=== PATIENT | female | born 1945 | race Caucasian/White ===

== ENCOUNTER → 2017-04-06 | Outpatient (CLI) | payer MEDICARE ==
--- NOTE | 2017-04-07 11:45 | MM ---
Reason for exam: screening (asymptomatic). Last mammogram was performed 1 year and 5 months ago. History: Patient is postmenopausal and had first child at age 34. Took estrogen for 4 years. Physical Findings: A clinical breast exam by your physician is recommended on an annual basis and results should be correlated with mammographic findings. MG 3D Screening Mammo W/Cad Bilateral CC and MLO view(s) were taken. Prior study comparison: November 07, 2015, bilateral MG 3d screening mammo w/cad. August 15, 2014, mammogram, performed at [facility]. Finding: There is increased equal architectural distortion located 6 cm from the nipple in the inner quadrant, middle position of the right breast. New finding since November 07, 2015 and August 15, 2014. ASSESSMENT: Incomplete: need additional imaging evaluation, BI-RAD 0 RECOMMENDATION: Special view mammogram of the right breast. If lesion persists on supplemental views, image directed ultrasound is recommended. [facility] will attempt to contact patient to return for supplemental views and ultrasound if indicated.
== END | disposition home or self-care (01) ==
LOC: RADMAMWWP 09:38
PROVIDERS: ATTEND Family Medicine
DX: Z12.31 Encounter for screening mammogram for malignant neoplasm of breast (principal)
CPT/HCPCS: 77063; G0202

== ENCOUNTER → 2017-04-15 | Outpatient (CLI) | payer MEDICARE ==
--- NOTE | 2017-04-16 09:01 | MM ---
Reason for exam: additional evaluation requested from abnormal screening. Last mammogram was performed less than 1 month ago. History: Patient is postmenopausal and had first child at age 34. Family history of breast cancer in maternal aunt. Took estrogen for 4 years. Physical Findings: Nurse did not find any significant physical abnormalities on exam. MG 3D Work Up W/Cad RT Spot compression CC, spot compression MLO, and ML view(s) were taken of the right breast. Prior study comparison: April 06, 2017, bilateral MG 3d screening mammo w/cad. November 07, 2015, bilateral MG 3d screening mammo w/cad. August 15, 2014, mammogram, performed at [facility]. The breast tissue is heterogeneously dense. This may lower the sensitivity of mammography. 6mm mass lower inner quadrant in the right breast about 6 cm from nipple persists on additional views. These results were verbally communicated with the patient and result sheet given to the patient on 04/15/17. ASSESSMENT: Incomplete: need additional imaging evaluation, BI-RAD 0 RECOMMENDATION: Ultrasound of the right breast.
--- NOTE | 2017-04-16 09:02 | USB ---
Reason for exam: additional evaluation requested from abnormal screening. History: Patient is postmenopausal and had first child at age 34. Family history of breast cancer in maternal aunt. Took estrogen for 4 years. US Breast Workup Limited RT Right breast ultrasound demonstrates a 3 x 3mm oval, cystic lesion at 3 o'clock, corresponds to mammographic finding. No suspicious finding. These results were verbally communicated with the patient and result sheet given to the patient on 04/15/17. ASSESSMENT: Benign, BI-RAD 2 RECOMMENDATION: Return to routine screening mammogram schedule for both breasts.
== END | disposition home or self-care (01) ==
LOC: RADMAMWWP 08:56
PROVIDERS: ATTEND Family Medicine
DX: R92.8 Other abnormal and inconclusive findings on diagnostic imaging of breast (principal)
CPT/HCPCS: 76642; G0206; G0279

== ENCOUNTER → 2017-12-14 | Outpatient (CLI) | payer MEDICARE ==
--- NOTE | 2017-12-14 14:42 | XR ---
EXAMINATION TYPE: XR knee complete bilateral DATE OF EXAM: 12/14/2017 CLINICAL HISTORY: Progressive worsening of bilateral chronic knee pain. TECHNIQUE: Three views of the bilateral knees were obtained. COMPARISON: None. FINDINGS: There is no acute fracture/dislocation evident in either knee. Within both knees there is tricompartmental joint space narrowing and marginal osteophytes with bilateral tibial plateau scleros is. Findings are indicative of moderate arthropathy bilaterally. No suprapatellar joint effusion is s een. No suspicious osseous lesion. Osseous mineralization is within normal limits. The overlying sof t tissue appears unremarkable. IMPRESSION: 1. No acute fracture or dislocation in the either knee. 2. Moderate bilateral tricompartmental arthropathy.
== END | disposition home or self-care (01) ==
LOC: RADXRMAIN 13:17
PROVIDERS: ATTEND Family Medicine
DX: M12.862 Other specific arthropathies, not elsewhere classified, left knee (principal); M12.861 Other specific arthropathies, not elsewhere classified, right knee

== ENCOUNTER → 2019-04-25 | Outpatient (CLI) | payer MEDICARE ==
--- NOTE | 2019-04-25 10:56 | MM ---
Reason for exam: screening (asymptomatic). Last mammogram was performed 2 years ago. History: Patient is postmenopausal and had first child at age 34. Family history of breast cancer in maternal aunt at age 50. Took estrogen for 4 years. Physical Findings: A clinical breast exam by your physician is recommended on an annual basis and results should be correlated with mammographic findings. MG Screening Mammo w CAD Bilateral CC and MLO view(s) were taken. Prior study comparison: April 15, 2017, right breast MG 3d work up w/cad RT. April 06, 2017, bilateral MG 3d screening mammo w/cad. The breast tissue is heterogeneously dense. This may lower the sensitivity of mammography. There are benign appearing round calcifications bilaterally. Asymmetric breast tissue right medial aspect unchanged from 2013. There is no discrete abnormality. ASSESSMENT: Benign, BI-RAD 2 RECOMMENDATION: Routine screening mammogram of both breasts in 1 year.
== END | disposition home or self-care (01) ==
LOC: RADMAMWWP 09:38
PROVIDERS: ATTEND Family Medicine
DX: Z12.31 Encounter for screening mammogram for malignant neoplasm of breast (principal)
CPT/HCPCS: 77067

== ENCOUNTER → 2019-07-19 | Outpatient (CLI) | payer MEDICARE ==
[2019-07-19 19:30] LABS: African American GFR (CKD) 65.2 (60.0-200.0); Albumin 4.2 g/dL (3.80-4.90); Albumin/Globulin Ratio 1.83 (1.60-3.17); Anion Gap 5.4 mmol/L (4.00-12.00); Calcium 9.5 mg/dL (8.7-10.3); Carbon Dioxide 30.6 mmol/L (21.6-31.8); Chol/HDL Ratio 3.76; Globulin 2.3 g/dL (1.6-3.3); LDL Cholesterol,Calculated 99.4 mg/dL (0.0-131.0); Non-African American GFR(CKD) 56.2 (60.0-200.0); Potassium 4.6 mmol/L (3.5-5.5); Total Bilirubin 0.4 mg/dL (0.3-1.2); Total Protein 6.5 g/dL (6.2-8.2); VLDL Calculation 38.6 mg/dL (5.00-40.00)
[2019-07-19 19:58] LABS: T4, Free (Free Thyroxine) 0.8 ng/dL (0.80-1.80)
== END ==
LOC: LABWHC1 09:47
PROVIDERS: ATTEND Family Medicine
DX: Z00.00 Encounter for general adult medical examination without abnormal findings (principal); I10 Essential (primary) hypertension
CPT/HCPCS: 36415; 80053; 80061; 82306; 84439; 84443

== ENCOUNTER → 2020-09-19 | Outpatient (CLI) | payer MEDICARE ==
[2020-09-19 15:08] LABS: Basophils # (A) 0.03 X 10*3/uL (0.00-0.10); Basophils % (A) 0.5 %; Eosinophils # (A) 0.23 X 10*3/uL (0.04-0.35); Eosinophils % (A) 3.9 %; HCT 38.9 % (37.2-46.3); HGB 12.4 g/dL (12.0-15.0); Lymphocytes # (A) 2.24 X 10*3/uL (0.90-5.00); Lymphocytes % (A) 38.2 %; MCHC 31.9 g/dL (32.0-37.0); MCV 94.2 fL (80.0-97.0); Mean Platelet Volume 9.9 fL (9.5-12.2); Monocytes # (A) 0.83 X 10*3/uL (0.20-1.00); Monocytes % (A) 14.1 %; Neutrophils # (A) 2.52 X 10*3/uL (1.80-7.70); Platelet Count 285 X 10*3/uL (140-440); RBC 4.13 X 10*6/uL (4.10-5.20); RDW 11.9 % (11.5-14.5); WBC 5.87 X 10*3/uL (4.50-10.00)
[2020-09-20 01:44] LABS: African American GFR (CKD) 57.7 (60.0-200.0); Albumin 4.2 g/dL (3.80-4.90); Albumin/Globulin Ratio 1.83 (1.60-3.17); Anion Gap 6.1 mmol/L (4.00-12.00); BUN/Creat Ratio 15.45 Ratio (12.00-20.00); Calcium 9.2 mg/dL (8.7-10.3); Carbon Dioxide 29.9 mmol/L (21.6-31.8); Chol/HDL Ratio 3.52; Globulin 2.3 g/dL (1.6-3.3); LDL Cholesterol,Calculated 93.2 mg/dL (0.0-131.0); Non-African American GFR(CKD) 49.8 (60.0-200.0); Potassium 4.5 mmol/L (3.5-5.5); Total Bilirubin 0.3 mg/dL (0.2-1.2); Total Protein 6.5 g/dL (6.2-8.2); VLDL Calculation 32.8 mg/dL (5.00-40.00)
== END | disposition home or self-care (01) ==
LOC: LABWHC1 10:23
PROVIDERS: ATTEND Family Medicine
DX: Z00.00 Encounter for general adult medical examination without abnormal findings (principal); E55.9 Vitamin D deficiency, unspecified; I12.9 Hypertensive chronic kidney disease with stage 1 through stage 4 chronic kidney disease, or unspecified chronic kidney disease; N18.30 Chronic kidney disease, stage 3 unspecified
CPT/HCPCS: 36415; 80053; 80061; 82306; 84443; 85025

== ENCOUNTER → 2021-03-13 | Outpatient (CLI) | payer MEDICARE ==
--- NOTE | 2021-03-15 08:57 | MM ---
Reason for exam: screening (asymptomatic). Last mammogram was performed 1 year and 11 months ago. History: Patient is postmenopausal and had first child at age 34. Family history of breast cancer in maternal aunt at age 50. Took estrogen for 4 years. Physical Findings: A clinical breast exam by your physician is recommended on an annual basis and results should be correlated with mammographic findings. MG 3D Screening Mammo W/Cad Bilateral CC and MLO view(s) were taken. Prior study comparison: April 25, 2019, bilateral MG screening mammo w CAD. April 15, 2017, right breast MG 3d work up w/cad RT. November 07, 2015, bilateral MG 3d screening mammo w/cad. There are scattered fibroglandular densities. Small benign oil cyst calcifications. No significant changes when compared with prior studies. ASSESSMENT: Benign, BI-RAD 2 RECOMMENDATION: Routine screening mammogram of both breasts in 1 year.
== END | disposition home or self-care (01) ==
LOC: RADMAMWWP 13:59
PROVIDERS: ATTEND Family Medicine
DX: Z12.31 Encounter for screening mammogram for malignant neoplasm of breast (principal); Z78.0 Asymptomatic menopausal state; Z80.3 Family history of malignant neoplasm of breast; Z79.818 Long term (current) use of other agents affecting estrogen receptors and estrogen levels
CPT/HCPCS: 77063; 77067

== ENCOUNTER 2021-07-07 12:26 | Emergency (ER) | payer MEDICARE ==
[2021-07-07 12:46] VITALS: RESP 18
[2021-07-07] MEDS ORDERED: BAMLANIVIMAB (EUA) 700 MG, ETESEVIMAB (EUA) 1,400 MG in SODIUM CHLORIDE 0.9% 50 ML IVPB ONE (16:30)
[2021-07-07] MEDS ORDERED: SODIUM CHLORIDE 0.9% 50 ML IVPB ONE (17:00)
--- NOTE | 2021-07-07 17:18 | ED ---
General Adult HPI - General Chief complaint: Upper Respiratory Infection Stated complaint: Covid+/Wants antibodies Time Seen by Provider: 07/07/21 14:56 Source: patient, RN notes reviewed, old records reviewed Mode of arrival: ambulatory Limitations: no limitations - History of Present Illness Initial comments: I evaluated the patient when she was placed in a room. She is a 75-year-old female with past medical history remarkable for hypertension presents to the emergency department seeking Bam therapy for her COVID-19 infection. Patient tested positive within the last few days. She's been having symptoms for approximate 7 days. She was vaccinated for COVID-19 both doses. She endorses mild rhinorrhea with a mild nonproductive cough but denies any shortness of breath, chest pain, abdominal pain, nausea, vomiting. She has no other acute complaints at this time. She is requesting Bam therapy. - Related Data Home Medications Medication Instructions Recorded Confirmed Metoprolol Succinate [Toprol XL] 100 mg PO DAILY 07/07/21 07/07/21 PARoxetine HCL [Paxil] 10 mg PO DAILY PRN 07/07/21 07/07/21 Allergies Allergy/AdvReac Type Severity Reaction Status Date / Time amoxicillin Allergy Unknown Verified 07/07/21 15:25 Review of Systems ROS Statement: Those systems with pertinent positive or pertinent negative responses have been documented in the HPI. Review of Systems: CONST: Denies fever EYES: Denies blurry vision ENT: Endorses nasal congestion C/V: Denies Chest pain RESP: Denies shortness of breath GI: Denies abdominal pain : Denies dysuria SKIN: Denies rash. MSK: Denies joint pain. NEURO: Denies headache ROS Other: All systems not noted in ROS Statement are negative. Past Medical History Past Medical History: Hypertension History of Any Multi-Drug Resistant Organisms: None Reported Past Surgical History: Joint Replacement Additional Past Surgical History / Comment(s): cataracts Past Psychological History: Depression Smoking Status: Never smoker Past Alcohol Use History: None Reported Past Drug Use History: None Reported General Exam - General Exam Comments Initial Comments: General: Appears in no acute distress. HEAD: Normal with no signs of head trauma. EYES: PERRLA, EOMI, conjunctiva normal, no discharge. ENT: Hearing grossly intact, normal oropharynx. Mild rhinorrhea. RESPIRATORY: Clear breath sounds bilaterally. No wheezes, rales, or rhonchi. Not hypoxic. No increased work of breathing. C/V: Regular rate and rhythm. S1 and S2 auscultated, no edema, peripheral pulses 2+ and intact throughout ABD: Abd is soft, nontender, nondistended EXT: Normal range of motion, no obvious deformity SKIN: No rashes or lesions observed on exposed skin. NEURO: Alert and oriented 4. Limitations: no limitations Course Vital Signs 07/07/21 07/07/21 07/07/21 12:43 14:46 17:30 Temperature 98.1 F Pulse Rate 75 78 Respiratory 18 18 18 Rate Blood Pressure 177/84 141/78 O2 Sat by Pulse 96 97 Oximetry Medical Decision Making - Medical Decision Making Based on the patient's presentation and physical exam, she is covid positive patient with mild symptoms. She is not hypoxic. I did not believe that she requires laboratory studies or imaging at this time. She is requesting monoclonal antibody therapy which she will be given. She did consent to the therapy. She'll be observed following therapy for any ALLERGIC reactions. She was in agreement this plan. Following a period Of observation after therapy, she had no ALLERGIC reactions. She'll be discharged home in good condition. I instructed the patient to follow up with their PCP in the next 3 days. I explained that the patient should return to the emergency department if they experience any worsening symptoms. Strict return precautions were discussed with the patient. The patient expressed understanding of these instructions. I answered all questions that the patient had. The patient was discharged home in good condition with their prescriptions and follow up information. Disposition Clinical Impression: COVID-19 Disposition: HOME SELF-CARE Condition: Good Instructions (If sedation given, give patient instructions): Coronavirus Disease 2019 (COVID-19) Is patient prescribed a controlled substance at d/c from ED?: No Referrals: Lety Kwan MD [Primary Care Provider] - 1-2 days
[2021-07-07 18:13] VITALS: BP 141/78; PULSE 78; TEMP 98.1
== END 2021-07-07 17:30 | disposition home or self-care (01) ==
LOC: EC 12:26
DX: U07.1 COVID-19 (principal); I10 Essential (primary) hypertension; F32.A Depression, unspecified; Z88.0 Allergy status to penicillin
CPT/HCPCS: 99283; 96365; J3490

== ENCOUNTER → 2021-09-11 | Outpatient (CLI) | payer MEDICARE ==
[2021-09-11 14:35] LABS: Basophils # (A) 0.03 X 10*3/uL (0.00-0.10); Basophils % (A) 0.5 %; Eosinophils # (A) 0.27 X 10*3/uL (0.04-0.35); Eosinophils % (A) 4.8 %; HCT 37.4 % (37.2-46.3); Lymphocytes # (A) 1.83 X 10*3/uL (0.90-5.00); Lymphocytes % (A) 32.6 %; MCH 30.5 pg (27.0-32.0); MCHC 32.1 g/dL (32.0-37.0); MCV 94.9 fL (80.0-97.0); Mean Platelet Volume 9.4 fL (9.5-12.2); Monocytes # (A) 0.79 X 10*3/uL (0.20-1.00); Monocytes % (A) 14.1 %; Neutrophils # (A) 2.68 X 10*3/uL (1.80-7.70); Neutrophils % (A) 47.8 %; Platelet Count 303 X 10*3/uL (140-440); RBC 3.94 X 10*6/uL (4.10-5.20); RDW 12.7 % (11.5-14.5); WBC 5.61 X 10*3/uL (4.50-10.00)
[2021-09-11 14:59] LABS: ALT 17 U/L (8-44); AST 23 U/L (13-35); African American GFR (CKD) 67.7 (60.0-200.0); Albumin 4.1 g/dL (3.8-4.9); Albumin/Globulin Ratio 1.29 (1.60-3.17); Alkaline Phosphatase 85 U/L (41-126); BUN/Creat Ratio 16.28 Ratio (12.00-20.00); Blood Urea Nitrogen 15.6 mg/dL (9.0-27.0); Calcium 9.6 mg/dL (8.7-10.3); Chloride 104 mmol/L (96-109); Chol/HDL Ratio 3.83 Ratio; Globulin 3.2 g/dL (1.6-3.3); Glucose 102 mg/dL (70-110); LDL Cholesterol,Calculated 100.7 mg/dL (0.0-131.0); Non-African American GFR(CKD) 58.4 (60.0-200.0); Potassium 4.8 mmol/L (3.5-5.5); Sodium 142 mmol/L (135-145); Total Protein 7.2 g/dL (6.2-8.2)
== END | disposition home or self-care (01) ==
LOC: LABWHC1 09:59
PROVIDERS: ATTEND Family Medicine
DX: Z00.00 Encounter for general adult medical examination without abnormal findings (principal); E55.9 Vitamin D deficiency, unspecified
CPT/HCPCS: 36415; 80053; 80061; 82306; 84443; 85025

== ENCOUNTER → 2022-03-18 | Outpatient (CLI) | payer MEDICARE ==
--- NOTE | 2022-03-19 19:51 | MM ---
Reason for Exam: Screening (asymptomatic). Last mammogram was performed 1 year(s) and 1 month(s) ago. Patient History: Menarche at age 14. First Full-Term at age 34. Late child-bearing (after 30). Postmenopausal. Patient has history of breast feeding. Patient used Estrogen for 4 years. Maternal aunt had breast cancer, age 50. Risk Values: Shelly 5 year model risk: 2.4%. NCI Lifetime model risk: 5.3%. Prior Study Comparison: 04/06/2017 Bilateral Screening Mammogram, [facility]. 04/15/2017 Right Diagnostic Mammogram, [facility]. 04/25/2019 Bilateral Screening Mammogram, [facility]. 03/13/2021 Bilateral Screening Mammogram, [facility]. Tissue Density: The breast tissue is heterogeneously dense. This may lower the sensitivity of mammography. Findings: Analyzed By CAD. Dense tissues are present anteriorly on a background of scattered densities. Benign bilateral calcifications. Chronic underlying nodularity on the right as well as areas of asymmetric density. These asymmetric densities when compared to various multiple priors appear to be unchanged. No significant change from prior exams. Overall Assessment: Benign, BI-RAD 2 Management: Screening Mammogram of both breasts in 1 year. 1. Patient should continue monthly self breast exams. 2. A clinical breast exam by your physician is recommended on an annual basis. 3. This exam should not preclude additional follow-up of suspicious palpable abnormalities. Electronically signed and approved by: Vidya Matamoros M.D. Radiologist
== END | disposition home or self-care (01) ==
LOC: RADMAMWWP 09:51
PROVIDERS: ATTEND Family Medicine
DX: Z12.31 Encounter for screening mammogram for malignant neoplasm of breast (principal); Z78.0 Asymptomatic menopausal state; Z80.3 Family history of malignant neoplasm of breast
CPT/HCPCS: 77063; 77067

== ENCOUNTER 2022-04-30 09:28 | Day surgery (SDC) | payer MEDICARE ==
[2022-04-29 09:47] VITALS: BMI 44.6
[~2022-04-30 09:28] MED LIST: LACTATED RINGERS 1,000 ML IV SCH; LIDOCAINE 1% (10MG/ML) FOR IV START INTRADERMA PRN
[2022-04-30 10:05] VITALS: TEMP 97.3
[2022-04-30] MEDS ORDERED: PROPOFOL 10 MG/ML 20 ML VIAL IV ONE (10:38)
--- NOTE | 2022-04-30 10:54 | P.PCN ---
Date of Procedure: 04/30/22 Procedure(s) Performed: BRIEF HISTORY: Patient is a 76-year-old pleasant female scheduled for an elective colonoscopy as a part of screening for colorectal neoplasia. PROCEDURE PERFORMED: Colonoscopy with biopsy. PREOPERATIVE DIAGNOSIS: Screening for colon cancer. IV sedation per Anesthesia. PROCEDURE: After informed consent was obtained, the patient, was brought into the endoscopy unit. IV sedation was administered by Anesthesia under continuous monitoring. Digital rectal examination was normal. Initially the Olympus CF-160 flexible video colonoscope was then inserted in the rectum, gradually advanced into the cecum without any difficulty. Careful examination was performed as the scope was gradually being withdrawn. Ileocecal valve and the appendiceal orifice were visualized and appeared normal. Prep was excellent. Mucosa of the cecum, had 3 mm sessile polyp that was removed by cold biopsy. Rest of the ascending colon, transverse colon, descending colon, sigmoid colon, and rectum appeared normal. Scattered sigmoid diverticulosis. Retroflexion was performed in the rectum and no lesions were seen. The patient tolerated the procedure well. IMPRESSION: Millimeters sessile cecal polyp status post cold biopsy Scattered sigmoid diverticulosis RECOMMENDATIONS: Findings of this examination were discussed with the patient and family.. He was advised to follow with the biopsy results. If the biopsy result adenoma she can have a repeat colonoscopy in 5 years.
[2022-04-30 11:21] VITALS: BP 140/60; PULSE 64; RESP 15
== END 2022-04-30 11:40 | disposition home or self-care (01) ==
LOC: ORWHC2ENDO 09:28
PROVIDERS: ATTEND Internal Medicine Gastroenterology
DX: Z12.11 Encounter for screening for malignant neoplasm of colon (principal); K63.5 Polyp of colon; K57.30 Diverticulosis of large intestine without perforation or abscess without bleeding; I10 Essential (primary) hypertension; Z79.82 Long term (current) use of aspirin; Z79.899 Other long term (current) drug therapy; Z88.0 Allergy status to penicillin
CPT/HCPCS: 88305; 45380; J2704

== ENCOUNTER → 2022-12-17 | Outpatient (CLI) | payer MEDICARE ==
[2022-12-17 15:39] LABS: ALT 16 U/L (8-44); AST 21 U/L (13-35); Albumin 4.1 g/dL (3.8-4.9); Albumin/Globulin Ratio 1.41 (1.60-3.17); Alkaline Phosphatase 83 U/L (41-126); BUN/Creat Ratio 16.22 Ratio (12.00-20.00); Blood Urea Nitrogen 14.6 mg/dL (9.0-27.0); Calcium 9.8 mg/dL (8.7-10.3); Carbon Dioxide 28.8 mmol/L (20.0-27.5); Chloride 104 mmol/L (96-109); Globulin 2.9 g/dL (1.6-3.3); Glucose 94 mg/dL (70-110); Non-African American GFR(CKD) 62.1 (60.0-200.0); Sodium 142 mmol/L (135-145)
[2022-12-17 15:58] LABS: Basophils # (A) 0.03 X 10*3/uL (0.00-0.10); Basophils % (A) 0.6 %; Eosinophils # (A) 0.19 X 10*3/uL (0.04-0.35); Eosinophils % (A) 3.5 %; HCT 39.4 % (37.2-46.3); HGB 12.9 g/dL (12.0-15.0); Immature Grans, Automated 0.4 %; Lymphocytes # (A) 1.81 X 10*3/uL (0.90-5.00); Lymphocytes % (A) 33.5 %; MCH 30.4 pg (27.0-32.0); MCHC 32.7 g/dL (32.0-37.0); MCV 92.9 fL (80.0-97.0); Mean Platelet Volume 9.7 fL (9.5-12.2); Monocytes # (A) 0.65 X 10*3/uL (0.20-1.00); NRBC Per 100 WBC 0 /100 WBCS (0.0-0.0); Neutrophils # (A) 2.71 X 10*3/uL (1.80-7.70); Platelet Count 276 X 10*3/uL (140-440); RBC 4.24 X 10*6/uL (4.10-5.20); RDW 12.2 % (11.5-14.5); WBC 5.41 X 10*3/uL (4.50-10.00)
== END | disposition home or self-care (01) ==
LOC: LABWHC1 10:27
PROVIDERS: ATTEND Family Medicine
DX: Z00.00 Encounter for general adult medical examination without abnormal findings (principal)
CPT/HCPCS: 36415; 80053; 80061; 83036; 84443; 85025

== ENCOUNTER → 2023-04-13 | Outpatient (CLI) | payer MEDICARE ==
--- NOTE | 2023-04-14 10:45 | MM ---
Reason for Exam: Screening (asymptomatic). Last screening mammogram was performed 12 month(s) ago. Patient History: Menarche at age 14. First Full-Term at age 34. Late child-bearing (after 30). Postmenopausal. Patient has history of breast feeding. Patient used Estrogen for 4 years. Maternal aunt had breast cancer, age 50. Risk Values: Shelly 5 year model risk: 2.4%. NCI Lifetime model risk: 4.9%. Prior Study Comparison: 04/25/2019 Bilateral Screening Mammogram, [facility]. 03/13/2021 Bilateral Screening Mammogram, [facility]. 03/18/2022 Bilateral MG 3D screening mammo w/cad, [facility]. Tissue Density: The breast tissue is heterogeneously dense. This may lower the sensitivity of mammography. Findings: Analyzed By CAD. Left breast increasing asymmetry in the upper aspect on MLO view 10 mm in size measuring 5-6 cm from the nipple. Right breast Benign-appearing calcifications bilaterally. Overall Assessment: Incomplete: need additional imaging evaluation, BI-RAD 0 Management: Diagnostic Mammogram of the left breast. [facility] will attempt to contact patient to return for supplemental views and ultrasound if indicated. Patient should continue monthly self-breast exams. A clinical breast exam by your physician is recommended on an annual basis. This exam should not preclude additional follow-up of suspicious palpable abnormalities. Note on Shelly scores and lifetime risk: 1. A Shelly score greater than 3% is considered moderate risk. If this is the case, consider specialist referral to assess eligibility for a risk reducing agent. 2. If overall lifetime risk for the development of breast cancer is 20% or higher, the patient may qualify for future screening with alternating mammogram and breast MRI. Electronically signed and approved by: Leonid Gresham DO
== END | disposition home or self-care (01) ==
LOC: RADMAMWWP 10:07
PROVIDERS: ATTEND Family Medicine
DX: Z12.31 Encounter for screening mammogram for malignant neoplasm of breast (principal); Z78.0 Asymptomatic menopausal state; Z80.3 Family history of malignant neoplasm of breast
CPT/HCPCS: 77063; 77067

== ENCOUNTER → 2023-04-22 | Outpatient (CLI) | payer MEDICARE ==
--- NOTE | 2023-04-22 11:18 | MM ---
Reason for Exam: Additional evaluation requested from abnormal screening. Last screening mammogram was performed less than 1 month ago. Patient History: Menarche at age 14. First Full-Term at age 34. Late child-bearing (after 30). Postmenopausal. Patient has history of breast feeding. Patient used Estrogen for 4 years. Maternal aunt had breast cancer, age 50. Risk Values: Shelly 5 year model risk: 2.4%. NCI Lifetime model risk: 4.9%. Prior Study Comparison: 03/13/2021 Bilateral Screening Mammogram, [facility]. 03/18/2022 Bilateral MG 3D screening mammo w/cad, [facility]. 04/13/2023 Bilateral MG 3D screening mammo w/cad, [facility]. Tissue Density: Left: The breast tissue is heterogeneously dense. This may lower the sensitivity of mammography. Findings: Analyzed By CAD. Pattern appears stable. No persistent suspicious density on compression. There is persistence of the asymmetric density and ultrasound be utilized for further evaluation. There are multiple cysts benign spherical calcifications within the left breast. Overall Assessment: Incomplete: need additional imaging evaluation, BI-RAD 0 Management: Diagnostic Breast Ultrasound of the left breast. A negative mammogram report should not preclude additional follow up of suspicious palpable abnormalities. Patient should continue monthly self breast exam. A clinical breast exam by your physician is recommended on an annual basis and results should be correlated with mammographic findings. Electronically signed and approved by: Alejandro Krishnan D.O. Radiologis
--- NOTE | 2023-04-22 11:35 | USB ---
Reason for Exam: Additional evaluation requested from abnormal screening. Patient History: Menarche at age 14. First Full-Term at age 34. Late child-bearing (after 30). Postmenopausal. Patient has history of breast feeding. Patient used Estrogen for 4 years. Maternal aunt had breast cancer, age 50. Risk Values: Shelly 5 year model risk: 2.4%. NCI Lifetime model risk: 4.9%. Technique: Method: Targeted. Prior Study Comparison: 03/13/2021 Bilateral Screening Mammogram, [facility]. 03/18/2022 Bilateral MG 3D screening mammo w/cad, [facility]. 04/13/2023 Bilateral MG 3D screening mammo w/cad, [facility]. Findings: The upper outer quadrant of the left breast, the axilla of the left breast and the retroareolar of the left breast were scanned. No solid or cystic masses are identified. No ultrasound abnormality to correspond to the asymmetric density on mammogram.. Overall Assessment: Benign, BI-RAD 2 Management: Diagnostic Mammogram of the left breast in 6 months. A clinical breast exam by your physician is recommended on an annual basis and results should be correlated with mammographic findings. This exam should not preclude additional follow-up of suspicious palpable abnormalities. Results were given to the patient verbally at the time of exam. Electronically signed and approved by: Alejandro Krishnan D.O. Radiologis
== END | disposition home or self-care (01) ==
LOC: RADMAMWWP 10:19
PROVIDERS: ATTEND Family Medicine
DX: R92.8 Other abnormal and inconclusive findings on diagnostic imaging of breast (principal); Z78.0 Asymptomatic menopausal state; Z80.3 Family history of malignant neoplasm of breast
CPT/HCPCS: 77065; 76642; G0279; 77061

== ENCOUNTER → 2024-02-03 | Outpatient (CLI) | payer MEDICARE ==
[2024-02-03 15:21] LABS: Basophils # (A) 0.02 X 10*3/uL (0.00-0.10); Basophils % (A) 0.3 %; Eosinophils # (A) 0.23 X 10*3/uL (0.04-0.35); HCT 38.5 % (37.2-46.3); HGB 12.3 g/dL (12.0-15.0); Lymphocytes # (A) 1.88 X 10*3/uL (0.90-5.00); Lymphocytes % (A) 32.6 %; MCH 30.1 pg (27.0-32.0); MCHC 31.9 g/dL (32.0-37.0); MCV 94.1 FL (80.0-97.0); Mean Platelet Volume 9.6 FL (9.5-12.2); Monocytes # (A) 0.77 X 10*3/uL (0.20-1.00); Monocytes % (A) 13.3 %; NRBC Per 100 WBC 0 X 10*3/uL (0.00-0.01); Neutrophils # (A) 2.86 X 10*3/uL (1.80-7.70); Neutrophils % (A) 49.6 %; Platelet Count 293 X 10*3/uL (140-440); RBC 4.09 X 10*6/uL (4.10-5.20); RDW 11.9 % (11.5-14.5); WBC 5.77 X 10*3/uL (4.50-10.00)
[2024-02-03 15:44] LABS: ALT 18 U/L (8-44); AST 28 U/L (13-35); Albumin 4.2 g/dL (3.8-4.9); Alkaline Phosphatase 90 U/L (41-126); Calcium 9.7 mg/dL (8.7-10.3); Chloride 103 mmol/L (96-109); Chol/HDL Ratio 3.65 Ratio; Glucose 107 mg/dL (70-110); LDL Cholesterol,Calculated 87.1 mg/dL (0.0-131.0); Potassium 4.3 mmol/L (3.5-5.5); Sodium 142 mmol/L (135-145); Total Bilirubin 0.3 mg/dL (0.3-1.2); Total Protein 7.2 g/dL (6.2-8.2)
== END | disposition home or self-care (01) ==
LOC: LABWHC1 09:57
PROVIDERS: ATTEND Family Medicine
DX: Z00.00 Encounter for general adult medical examination without abnormal findings (principal)
CPT/HCPCS: 36415; 80053; 80061; 83036; 84443; 85025

== ENCOUNTER → 2024-02-16 | Outpatient (CLI) | payer MEDICARE | END | disposition home or self-care (01) | LOC: RADMAMWWP 13:06 | PROVIDERS: ATTEND Family Medicine | DX: Z53.9 Procedure and treatment not carried out, unspecified reason (principal) ==

== ENCOUNTER → 2024-04-22 | Outpatient (CLI) | payer MEDICARE ==
--- NOTE | 2024-04-24 11:14 | MM ---
Reason for Exam: Screening (asymptomatic). Last mammogram was performed 1 year(s) and 1 month(s) ago. Patient History: Menarche at age 14. First Full-Term at age 34. Late child-bearing (after 30). Postmenopausal. Patient has history of breast feeding. Patient used Estrogen for 4 years. Maternal aunt (gr) had breast cancer, age 50. Risk Values: Shelly 5 year model risk: 2.4%. NCI Lifetime model risk: 4.6%. Prior Study Comparison: 04/06/2017 Bilateral Screening Mammogram, [facility]. 04/15/2017 Right Diagnostic Mammogram, [facility]. 04/25/2019 Bilateral Screening Mammogram, [facility]. 03/13/2021 Bilateral Screening Mammogram, [facility]. 03/18/2022 Bilateral MG 3D screening mammo w/cad, [facility]. 04/13/2023 Bilateral MG 3D screening mammo w/cad, [facility]. 04/22/2023 Left MG 3D work up w/cad , [facility]. Tissue Density: There are scattered areas of fibroglandular density. Findings: Analyzed By CAD. Right breast: There is no suspicious group of microcalcifications or new suspicious mass. Left breast: There is no suspicious group of microcalcifications or new suspicious mass. Overall Assessment: Negative, BI-RAD 1 Management: Screening Mammogram of both breasts in [address] [facility] will attempt to contact patient to return for supplemental views and ultrasound if indicated. Patient should continue monthly self-breast exams. A clinical breast exam by your physician is recommended on an annual basis. This exam should not preclude additional follow-up of suspicious palpable abnormalities. Note on Shelly scores and lifetime risk: 1. A Shelly score greater than 3% is considered moderate risk. If this is the case, consider specialist referral to assess eligibility for a risk reducing agent. 2. If overall lifetime risk for the development of breast cancer is 20% or higher, the patient may qualify for future screening with alternating mammogram and breast MRI. Electronically signed and approved by: Leonid Gresham DO
== END | disposition home or self-care (01) ==
LOC: RADMAMWWP 13:10
PROVIDERS: ATTEND Family Medicine
DX: Z12.31 Encounter for screening mammogram for malignant neoplasm of breast
CPT/HCPCS: 77063; 77067

== ENCOUNTER 2024-07-23 13:32 | Inpatient (IN) | payer MEDICARE ==
[2024-07-23 14:06] LABS: Basophils % (A) 1 %; Eosinophils # (A) 0.3 k/uL (0-0.7); Eosinophils % (A) 5 %; HCT 37.5 % (34.0-46.0); HGB 12.9 gm/dL (11.4-16.0); Lymphocytes % (A) 31 %; MCH 31.4 pg (25.0-35.0); MCHC 34.3 g/dL (31.0-37.0); MCV 91.3 fL (80.0-100.0); Mean Platelet Volume 6.4; Monocytes # (A) 0.7 k/uL (0-1.0); Monocytes % (A) 10 %; Neutrophils # (A) 3.3 k/uL (1.3-7.7); Neutrophils % (A) 50 %; Platelet Count 263 k/uL (150-450); RBC 4.11 m/uL (3.80-5.40); RDW 12.3 % (11.5-15.5); WBC 6.5 k/uL (3.8-10.6)
--- NOTE | 2024-07-23 14:08 | ED ---
Recheck HPI <Leonid Alfaro - Last Filed: 07/23/24 15:47> - General Source: patient, family, RN notes reviewed, old records reviewed Mode of arrival: ambulatory Limitations: no limitations <Elinor Escobar - Last Filed: 07/23/24 16:11> - General Chief Complaint: Recheck/Abnormal Lab/Rx Stated Complaint: Abd labs Time Seen by Provider: 07/23/24 14:08 - History of Present Illness Initial Comments: 78-year-old female presenting to the ER for evaluation of bradycardia. Patient was seen by PCP on 07-05-2024. Family, at bedside, state patient was found to have a low heart rate and was referred to cardiology. Patient followed up with Dr. Dietz in office yesterday and underwent EKG and echocardiogram. Holter monitor was also placed at that time. Patient states that she received a phone call from Dr. Martin this morning instructing her to go to the ER for further evaluation. Patient reports for the past couple of weeks she has been experiencing an increase in shortness of breath especially with exertion. Patient states she will be able to "wash dishes" for approximately 20 minutes until she has to sit down due to feeling short of breath. Family, at bedside, state after going grocery shopping or having a day outpatient will need 1 day to "recuperate". Patient denies any chest pain or palpitations. She does report a "foggy" sensation recently but this is not currently occurring. She denies any dizziness, lightheadedness, nausea, vomiting, abdominal pain, urinary complaints or peripheral edema. Patient denies orthopnea or home O2 use. No fever, cough, congestion. History of hypertension for which she takes metoprolol 50 mg and losartan 50mg daily. (Elinor Escobar) - Related Data Home Medications Medication Instructions Recorded Confirmed Metoprolol Succinate [Toprol XL] 100 mg PO DAILY 07/07/21 04/30/22 Ascorbic Acid [Vitamin C] 1,000 mg PO DAILY 07/23/24 07/23/24 Cholecalciferol (Vitamin D3) 50 mcg PO DAILY 07/23/24 07/23/24 [Vitamin D3 (50 Mcg = 2000 Iu)] Losartan [Cozaar] 50 mg PO DAILY 07/23/24 07/23/24 Zinc 15mg 1 tab PO DAILY 07/23/24 07/23/24 hydroCHLOROthiazide [Hydrodiuril] 25 mg PO DIRECTED 07/23/24 07/23/24 Allergies Allergy/AdvReac Type Severity Reaction Status Date / Time amoxicillin Allergy Rash/Hives Verified 07/23/24 16:04 soap Allergy Rash/Hives Verified 07/23/24 16:04 Review of Systems ROS Other: All systems not noted in ROS Statement are negative. <Leonid Alfaro - Last Filed: 07/23/24 15:47> ROS Other: All systems not noted in ROS Statement are negative. <Elinor Escobar - Last Filed: 07/23/24 16:11> ROS Statement: Those systems with pertinent positive or pertinent negative responses have been documented in the HPI. Past Medical History Past Medical History: Coronary Artery Disease (CAD), Chest Pain / Angina, Hypertension History of Any Multi-Drug Resistant Organisms: None Reported Past Surgical History: Joint Replacement Additional Past Surgical History / Comment(s): cataracts Past Psychological History: Depression Smoking Status: Current some day smoker, Never smoker Past Alcohol Use History: None Reported Past Drug Use History: None Reported <Elinor Escobar - Last Filed: 07/23/24 16:11> General Exam Limitations: no limitations General appearance: alert, in no apparent distress Respiratory exam: Present: normal lung sounds bilaterally. Absent: respiratory distress, wheezes, rales, rhonchi, stridor Cardiovascular Exam: Present: normal rhythm, bradycardia, normal heart sounds Extremities exam: Present: normal inspection, full ROM, normal capillary refill. Absent: tenderness, pedal edema, joint swelling, calf tenderness Neurological exam: Present: alert, oriented X3, CN II-XII intact Skin exam: Present: warm, dry, intact, normal color. Absent: rash <Elinor Escobar - Last Filed: 07/23/24 16:11> Course <Leonid Alfaro - Last Filed: 07/23/24 15:47> <Elinor Escobar - Last Filed: 07/23/24 16:11> Vital Signs 07/23/24 07/23/24 13:33 15:36 Temperature 98.1 F Pulse Rate 46 L 71 Respiratory 20 18 Rate Blood Pressure 192/66 174/65 O2 Sat by Pulse 96 98 Oximetry - Reevaluation(s) Reevaluation #1: 07/23/24 15:[address] Martin covering for cardiology, will admit to monitored bed, will hold metoprolol and start lisinopril for blood pressure. (Leonid Alfaro) 07/23/24 16:03 Case discussed with [facility], Dr. Antunez, for admission. (Elinor Escobar) Medical Decision Making - Lab Data Result diagrams: 07/23/24 13:59 07/23/24 13:59 <Leonid Alfaro - Last Filed: 07/23/24 15:47> - Lab Data Result diagrams: 07/23/24 13:59 07/23/24 13:59 - EKG Data -: EKG Interpreted by Me - Radiology Data Radiology results: report reviewed, image reviewed <Elinor Escobar - Last Filed: 07/23/24 16:11> - Medical Decision Making Was pt. sent in by a medical professional or institution (, PA, SUBSTITUTE BUS DRIVER, urgent care, hospital, or senior care...) When possible be specific @ -Patient sent in by Dr. Martin for evaluation. Did you speak to anyone other than the patient for history (EMS, parent, family, police, friend...)? What history was obtained from this source @ -No Did you review nursing and triage notes (agree or disagree)? Why? @ -I reviewed and agree with nursing and triage notes Were old charts reviewed (outside hosp., previous admission, EMS record, old EKG, old radiological studies, urgent care reports/EKG's, senior care records)? Report findings @ -No old charts were reviewed Differential Diagnosis (chest pain, altered mental status, abdominal pain women, abdominal pain men, vaginal bleeding, weakness, fever, dyspnea, syncope, headache, dizziness, GI bleed, back pain, seizure, CVA, palpatations, mental health, musculoskeletal)? @ -Differential Palpitations: Ventricular arrhythmias, atrial arrhythmias, myocardial infarction, anemia, thyrotoxicosis, electrolyte imbalance, hypokalemia, pulmonary embolism, pulmonary disease, drugs, alcohol, anxiety, stress.... This is not meant to be an all-inclusive list. EKG interpreted by me (3pts min.). @ -As above X-rays interpreted by me (1pt min.). @ -CXR interpreted by me negative for acute cardiopulmonary process. CT interpreted by me (1pt min.). @ -CTA chest negative for evidence of pulmonary embolism. U/S interpreted by me (1pt. min.). @ -None done What testing was considered but not performed or refused? (CT, X-rays, U/S, labs)? Why? @ -None What meds were considered but not given or refused? Why? @ -None Did you discuss the management of the patient with other professionals (professionals i.e. DrBradley, PA, SUBSTITUTE BUS DRIVER, lab, RT, psych nurse, social work instructor, insole toe snipping machine operator, teacher, district resource officer, correctional case records supervisor)? Give summary @ -Yes, case was discussed with Dr. Antunez [facility] for admission. Case was also discussed with cardiology, Dr. Martin, by my attending, Dr. Alfaro, who advised on holding metoprolol and starting lisinopril for blood pressure control. Admit to monitored bed. Was smoking cessation discussed for >3mins.? @ -No Was critical care preformed (if so, how long)? @ -No Were there social determinants of health that impacted care today? How? (Homelessness, low income, unemployed, alcoholism, drug addiction, transportation, low edu. Level, literacy, decrease access to med. care, intermediate, rehab)? @ -No Was there de-escalation of care discussed even if they declined (Discuss DNR or withdrawal of care, Hospice)? DNR status @ -No What co-morbidities impacted this encounter? (DM, HTN, Smoking, COPD, CAD, Cancer, CVA, ARF, Chemo, Hep., AIDS, mental health diagnosis, sleep apnea, morbid obesity)? @ -HTN Was patient admitted / discharged? Hospital course, mention meds given and route, prescriptions, significant lab abnormalities, going to OR and other pertinent info. @ -Admitted. 78 year old female presenting to the ER for evaluation of bradycardia patient was sent by Dr. Martin, cardiology. History and physical exam completed. Upon arrival patient is bradycardic at 46 and hypertensive at 192/66. Patient does take metoprolol and losartan daily. Exam benign. EKG showing a 2:1 complete second-degree AV block. Patient has intermittent normal sinus rhythm and heart rates ranging from 40 to 70 bpm. Patient denying any current complaints. Cardiac workup obtained and remarkable for a D-dimer of 1.39 for which CTA of the chest was negative for evidence of PE. Troponin undetectable. BNP is 647. Renal function appears to be at patient's baseline with a BUN of 23, creatinine 1.15 with a GFR 46. Chest x-ray negative. Admission considered and discussed with [facility], Dr. Antunez, for further evaluation. Dr. Alfaro, my attending, spoke with cardiology, Dr. Martin. Per cardiology, metoprolol held and patient started on lisinopril and admitted to a monitored bed. Patient remained stable and asymptomatic throughout ER stay. Patient admitted in stable condition with cardiology on consult for further evaluation and treatment. Patient is agreeable. Case was discussed with ED attending, Dr. Alfaro. Undiagnosed new problem with uncertain prognosis? @ -No Drug Therapy requiring intensive monitoring for toxicity (Heparin, Nitro, Insulin, Cardizem)? @ -No Were any procedures done? @ -No Diagnosis/symptom? @ -2nd degree AV block Acute, or Chronic, or Acute on Chronic? @ -Acute Uncomplicated (without systemic symptoms) or Complicated (systemic symptoms)? @ -Complicated Side effects of treatment? @ -No Exacerbation, Progression, or Severe Exacerbation? @ -No Poses a threat to life or bodily function? How? (Chest pain, USA, MS, pneumonia, PE, COPD, DKA, ARF, appy, cholecystitis, CVA, Diverticulitis, Homicidal, Suicidal, threat to staff... and all critical care pts) @ -Yes, AV blocks can lead to lethal cardiac arrhythmias. (Elinor Escobar) - Lab Data Lab Results 07/23/24 07/23/24 07/23/24 Range/Units 13:59 13:59 13:59 WBC 6.5 (3.8-10.6) k/uL RBC 4.11 (3.80-5.40) m/uL Hgb 12.9 (11.4-16.0) gm/dL Hct 37.5 (34.0-46.0) % MCV 91.3 (80.0-100.0) fL MCH 31.4 (25.0-35.0) pg MCHC 34.3 (31.0-37.0) g/dL RDW 12.3 (11.5-15.5) % Plt Count 263 (150-450) k/uL MPV 6.4 Neutrophils % 50 % Lymphocytes % 31 % Monocytes % 10 % Eosinophils % 5 % Basophils % 1 % Neutrophils # 3.3 (1.3-7.7) k/uL Lymphocytes # 2.0 (1.0-4.8) k/uL Monocytes # 0.7 (0-1.0) k/uL Eosinophils # 0.3 (0-0.7) k/uL Basophils # 0.0 (0-0.2) k/uL PT 10.6 (10.0-12.5) sec INR 1.0 (<1.2) APTT 23.0 (22.0-30.0) sec D-Dimer 1.39 H (<0.60) mg/L FEU Sodium 140 (137-145) mmol/L Potassium 4.0 (3.5-5.1) mmol/L Chloride 107 (98-107) mmol/L Carbon Dioxide 28 (22-30) mmol/L Anion Gap 5 mmol/L BUN 23 H (7-17) mg/dL Creatinine 1.15 H (0.52-1.04) mg/dL Est GFR (CKD-EPI)AfAm 53 (>60 ml/min/1.73 sqM) Est GFR (CKD-EPI)NonAf 46 (>60 ml/min/1.73 sqM) Glucose 132 H (74-99) mg/dL Calcium 9.3 (8.4-10.2) mg/dL Magnesium 1.9 (1.6-2.3) mg/dL Total Bilirubin 0.4 (0.2-1.3) mg/dL AST 28 (14-36) U/L ALT 20 (4-34) U/L Alkaline Phosphatase 86 (38-126) U/L Troponin I (0.000-0.034) ng/mL NT-Pro-B Natriuret Pep 647 pg/mL Total Protein 7.0 (6.3-8.2) g/dL Albumin 3.9 (3.5-5.0) g/dL 07/23/24 Range/Units 13:59 WBC (3.8-10.6) k/uL RBC (3.80-5.40) m/uL Hgb (11.4-16.0) gm/dL Hct (34.0-46.0) % MCV (80.0-100.0) fL MCH (25.0-35.0) pg MCHC (31.0-37.0) g/dL RDW (11.5-15.5) % Plt Count (150-450) k/uL MPV Neutrophils % % Lymphocytes % % Monocytes % % Eosinophils % % Basophils % % Neutrophils # (1.3-7.7) k/uL Lymphocytes # (1.0-4.8) k/uL Monocytes # (0-1.0) k/uL Eosinophils # (0-0.7) k/uL Basophils # (0-0.2) k/uL PT (10.0-12.5) sec INR (<1.2) APTT (22.0-30.0) sec D-Dimer (<0.60) mg/L FEU Sodium (137-145) mmol/L Potassium (3.5-5.1) mmol/L Chloride (98-107) mmol/L Carbon Dioxide (22-30) mmol/L Anion Gap mmol/L BUN (7-17) mg/dL Creatinine (0.52-1.04) mg/dL Est GFR (CKD-EPI)AfAm (>60 ml/min/1.73 sqM) Est GFR (CKD-EPI)NonAf (>60 ml/min/1.73 sqM) Glucose (74-99) mg/dL Calcium (8.4-10.2) mg/dL Magnesium (1.6-2.3) mg/dL Total Bilirubin (0.2-1.3) mg/dL AST (14-36) U/L ALT (4-34) U/L Alkaline Phosphatase (38-126) U/L Troponin I <0.012 (0.000-0.034) ng/mL NT-Pro-B Natriuret Pep pg/mL Total Protein (6.3-8.2) g/dL Albumin (3.5-5.0) g/dL - EKG Data EKG Comments: EKG taken at 13: 45 showing a sinus bradycardia. Second-degree AV block with a 2:1 ratio. No T wave abnormalities. No ST segment changes. Ventricular rate 53, QRS duration 81, QT/QTc 438/421. (Stariha,Elinor) Disposition <GuichomaninderLeonid - Last Filed: 07/23/24 15:47> Time of Disposition: 16:03 <Elinor Escobar - Last Filed: 07/23/24 16:11> Clinical Impression: AV block, 2nd degree Disposition: ADMITTED IP TO THIS HOSP Condition: Stable Referrals: Lety Kwan MD [Primary Care Provider] - 1-2 days
--- NOTE | 2024-07-23 14:10 | XR ---
EXAMINATION TYPE: XR chest 2V DATE OF EXAM: 07/23/2024 2:07 PM COMPARISON: Previous chest radiograph 07/05/2024. CLINICAL INDICATION: Female, 78 years old with history of dysrhythmia; [facility] TECHNIQUE: XR chest 2V Frontal and lateral views of the chest. FINDINGS: Lungs/Pleura: There is no evidence of pleural effusion, focal consolidation, or pneumothorax. Pulmonary vascularity: Unremarkable. Likely cracked device overlie the chest wall. Heart/mediastinum: Cardiomediastinal silhouette is unremarkable. Musculoskeletal: No acute osseous pathology. Other findings: None IMPRESSION: No acute cardiopulmonary disease/process. [facility], , 07/23/2024 2:08 PM
[2024-07-23 14:16] LABS: ALT 20 U/L (4-34); AST 28 U/L (14-36); African American GFR (CKD) 53 (>60 ml/min/1.73 sqM); Albumin 3.9 g/dL (3.5-5.0); Alkaline Phosphatase 86 U/L (38-126); Anion Gap 5 mmol/L; Blood Urea Nitrogen 23 mg/dL (7-17); Calcium 9.3 mg/dL (8.4-10.2); Carbon Dioxide 28 mmol/L (22-30); Chloride 107 mmol/L (98-107); Glucose 132 mg/dL (74-99); Magnesium 1.9 mg/dL (1.6-2.3); Non-African American GFR(CKD) 46 (>60 ml/min/1.73 sqM); Sodium 140 mmol/L (137-145); Total Bilirubin 0.4 mg/dL (0.2-1.3)
[2024-07-23 14:24] LABS: NT-Pro-B-Type Natriuretic Pept 647 pg/mL
[2024-07-23 14:40] LABS: Prothrombin Time 10.6 sec (10.0-12.5)
--- NOTE | 2024-07-23 15:25 | CT ---
EXAMINATION TYPE: CT chest angio for PE DATE OF EXAM: 07/23/2024 3:13 PM COMPARISON: Chest radiograph dated 07/23/2024. CLINICAL INDICATION: Female, 78 years old with history of elevated ddimer; Elevated D-dimer. TECHNIQUE/CONTRAST: CTA scan of the thorax is performed with IV Contrast, patient injected with 80 ml mL of Isovue 370, M IP images are created and reviewed these are created on a separate workstation.. CT DLP: 740.4 mGycm, Automated exposure control for dose reduction was used. FINDINGS: Pulmonary Artery: Suboptimal timing of contrast bolus limits evaluation for acute pulmonary embolism. Within these limitations, there is no evidence for a filling defect within the pulmonary vasculature to suggest acute pulmonary embolism. The pulmonary artery is of normal size. Lungs/Pleura: No evidence of focal consolidation, pleural effusion or pneumothorax. Airway: Large airways are patent. Heart: Heart is within normal limits for size. Vasculature: No evidence of aortic aneurysm. Mediastinum: No gross evidence of adenopathy. Musculoskeletal: No acute osseous abnormalities Soft Tissues/lymph nodes: Unremarkable. Lower neck: No significant findings. Upper Abdomen: No significant findings. IMPRESSION: No evidence of acute pulmonary embolism or acute pulmonary pathology. [facility], , 07/23/2024 3:22 PM
[2024-07-23] MEDS ORDERED: ACETAMINOPHEN TAB 325 MG TAB PO PRN (15:59)
[2024-07-23] MEDS ORDERED: ONDANSETRON 4 MG/2 ML VIAL IVP PRN (15:59)
[2024-07-23] MEDS ORDERED: NALOXONE 0.4 MG/ML 1 ML VIAL IV PRN ×2 (15:59→16:50)
[2024-07-23] MEDS: lisinopriL 10 MG TAB PO SCH (16:09)
[2024-07-23] MEDS ORDERED: hydrALAZINE HCL 20 MG/ML 1 ML VIAL IVP PRN (17:00)
--- NOTE | 2024-07-23 17:03 | P.HPIM ---
History of Present Illness H&P Date: 07/23/24 Chief Complaint: Irregular heart rhythm seen on outpatient school bus monitor Flor is a 78-year-old female with past medical history of primary hypertension Flor presents to the hospital complaining of irregular heart rhythm. The patient reports that she has seen her PCP as she is complaining of weakness for the past few months. She reports that she has seen her PCP on July 05. She had an EKG that had appeared abnormal and she was referred to cardiology. She h ad seen cardiology on July 22. She had echocardiogram and EKG which she reports has shown no irregularities. She was then discharged home with a school bus monitor. She was called to go to the ER as she had a irregular heart rhythm. When she presented to the hospital her initial heart was noted be 46. She was noted be hypertensive. EKG had revealed second-degree type II AV block. Case was discussed with cardiology who recommended getting admitted and holding metoprolol and starting lisinopril. Of note the patient does take losartan at home. The patient reports that she has not had any loss of consciousness or syncopal episodes. She reports that she is on aspirin 81 mg however if this has been held for the past week autonomously. In the ER her D-dimer was noted be elevated at 1.39. Chest x-ray revealed no acute process. She had a CTA chest which revealed no acute process. Review of Systems Constitutional: Reports as per HPI Past Medical History Past Medical History: Coronary Artery Disease (CAD), Chest Pain / Angina, Hypertension History of Any Multi-Drug Resistant Organisms: None Reported Past Surgical History: Joint Replacement Additional Past Surgical History / Comment(s): cataracts Past Psychological History: Depression Smoking Status: Current some day smoker, Never smoker Past Alcohol Use History: None Reported Past Drug Use History: None Reported Medications and Allergies Home Medications Medication Instructions Recorded Confirmed Type Metoprolol Succinate [Toprol XL] 50 mg PO DAILY 07/07/21 07/23/24 History Ascorbic Acid [Vitamin C] 1,000 mg PO DAILY 07/23/24 07/23/24 History Cholecalciferol (Vitamin D3) 50 mcg PO DAILY 07/23/24 07/23/24 History [Vitamin D3 (50 Mcg = 2000 Iu)] Losartan [Cozaar] 50 mg PO DAILY 07/23/24 07/23/24 History Zinc 15mg 1 tab PO DAILY 07/23/24 07/23/24 History hydroCHLOROthiazide [Hydrodiuril] 25 mg PO DIRECTED 07/23/24 07/23/24 History Allergies Allergy/AdvReac Type Severity Reaction Status Date / Time amoxicillin Allergy Rash/Hives Verified 07/23/24 16:04 soap Allergy Rash/Hives Verified 07/23/24 16:04 Physical Exam Vitals: Vital Signs Temp Pulse Resp BP Pulse Ox 07/23/24 15:36 71 18 174/65 98 07/23/24 13:33 98.1 F 46 L 20 192/66 96 Intake and Output 07/23/24 07/23/24 07/23/24 06:59 14:59 22:59 Other: Weight 125.191 kg General: non toxic, no distress, appears older than stated age Derm: warm, dry Head: atraumatic, normocephalic, symmetric Eyes: EOMI, no lid lag, anicteric sclera, pupils equal round reactive to light ENT: Nose and ears atraumatic, no thrush, no pharyngeal erythema Neck: No thyromegaly, no cervical lymphadenopathy, trachea midline, supple Mouth: no lip lesion, mucus membranes moist Cardiovascular: S1S2 reg, no murmur bradycardic rate Lungs: clear to ascultation bilateral, no ronchi, no rales, no wheeze, no acc essory muscle use Abdominal: soft, nontender to palpation, no guarding, no appreciable organomegaly, normal bowel sounds Ext: no gross muscle atrophy, muscle strength muscle strength 5 out of 5 in all 4 extremities, no contractures Neuro: Moving all extremity spontaneously Psych: Alert, oriented, appropriate affect Results CBC & Chem 7: 07/23/24 13:59 07/23/24 13:59 Labs: Abnormal Lab Results - Last 24 Hours (Table) 07/23/24 07/23/24 Range/Units 13:59 13:59 D-Dimer 1.39 H (<0.60) mg/L FEU BUN 23 H (7-17) mg/dL Creatinine 1.15 H (0.52-1.04) mg/dL Glucose 132 H (74-99) mg/dL Assessment and Plan Assessment: #)2nd degree, mobitz II AV block. Continue telemetry monitoring. NPO midnight. hold home metoprolol. bedrest with bathroom privledges. NPO for PPM with cardiology tomorrow. hold dvt ppx #) Primary htn. Noted to be on losartan 50 mg daily at home and had taken her losartan this am. rxed hctz by cardiology on 07/22. Continue home losartan 50 mg daily, monitor BP after PPM placement Dispo: cardiac stepdown. Anticipated discharge date 48-72 hours Dvt ppx: [facility]
[2024-07-24] MEDS: LOSARTAN 50 MG TAB PO SCH (08:14)
--- NOTE | 2024-07-24 09:16 | P.CRDCN ---
History of Present Illness History of present illness: HISTORY OF PRESENT ILLNESS: This is a 78-year-old female with a past medical history significant for hypertension. Patient follows in the office with Dr. Dietz. We have been asked to see the patient in consultation for heart block. Patient examined at the bedside. Patient recently established care with Dr. Dietz on 07/22/2024. Patient was found to be in sinus mechanism with 2-1 conduction. Patient was previously taking 100 mg of metoprolol succinate. It was decreased to 50 mg d aily. She was also given an event monitor. Patient received a phone call from cardiology instructing her to come to the emergency room. Patient's event monitor revealed episodes of second-degree heart block with 2-1 conduction. EKG on admission reveals the same. However at the time of examination she is maintaining sinus mechanism. She reports recently she has been feeling short of breath and having palpitations with ambulation. She also reports that her blood pressure has been elevated on an outpatient basis. Per nursing, patient's heart rate was in the 30s overnight. DIAGNOSTICS: - EKG reveals second-degree heart block with 2-1 conduction - Chest xray negative for acute process - Laboratory data: WBC 6.5. Hemoglobin 12.9. Platelet count 263. D-dimer 1.39. Sodium 140. Potassium 4.0. BUN 23. Creatinine 1.15. Troponin negative x 1. proBNP 647. - Current home cardiac medications include metoprolol succinate 50 mg daily, losartan 50 mg daily, hydrochlorothiazide 25 mg daily. - Patient did have an echocardiogram performed in the office on 07/22/2024. However results are unavailable at this time. REVIEW OF SYSTEMS: At the time of my exam: CONSTITUTIONAL: Denies fever or chills. HEENT: Denies blurred vision, vision changes, or eye pain. Denies hemoptysis CARDIOVASCULAR: Denies chest pain. Denies orthopnea. Denies PND. Denies palpitations RESPIRATORY: Denies shortness of breath. GASTROINTESTINAL: Denies abdominal pain. Denies nausea or vomiting. HEMATOLOGIC: Denies bleeding disorders. GENITOURINARY: Denies any blood in urine. SKIN: Denies pruitis. Denies rash. PHYSICAL EXAM: VITAL SIGNS: Reviewed. GENERAL: Well-developed in no acute distress. HEENT: Head is normocephalic. Pupils are equal, round. Sclerae anicteric. Mucous membranes of the mouth are moist. Neck supple. No JVD or thyromegaly LUNGS: Respirations even and unlabored. Lungs essentially clear to auscultation bilaterally. HEART: Regular rate and rhythm. S1 and S2 heard. ABDOMEN: Soft. Nondistended. Nontender. EXTREMITIES: Normal range of motion. No clubbing or cyanosis. Peripheral p ulses intact. No lower extremity edema NEUROLOGIC: Awake and alert. Oriented x 3. ASSESSMENT: Intermittent second-degree heart block with 2-1 conduction Exertional shortness of breath Hypertension Morbid obesity: BMI 43.2 PLAN: Patient had an echocardiogram performed in the office on 07/22/2024. Will attempt to obtain copy tomorrow when cardiology office is open. Check TSH Continue to hold metoprolol Patient takes losartan on an outpatient basis. She was also started on lisinopril per primary medicine. Discontinue lisinopril as she is already receiving losartan. Resume hydrochlorothiazide Continue to monitor blood pressure Continue telemetry monitoring If patient continues to have episodes of second-degree heart block despite discontinuation of metoprolol, will plan for pacemaker implantation Further recommendations pending patient course Nurse practitioner note has been reviewed by physician. Signing provider agrees with the documented findings, assessment, and plan of care documented by XEROX MACHINE OPERATOR as a scribe. Past Medical History Past Medical History: Coronary Artery Disease (CAD), Chest Pain / Angina, Hypertension History of Any Multi-Drug Resistant Organisms: None Reported Past Surgical History: Joint Replacement Additional Past Surgical History / Comment(s): cataracts Past Psychological History: Depression Smoking Status: Current some day smoker, Never smoker Past Alcohol Use History: None Reported Past Drug Use History: None Reported Medications and Allergies Home Medications Medication Instructions Recorded Confirmed Type Metoprolol Succinate [Toprol XL] 50 mg PO DAILY 07/07/21 07/23/24 History Ascorbic Acid [Vitamin C] 1,000 mg PO DAILY 07/23/24 07/23/24 History Cholecalciferol (Vitamin D3) 50 mcg PO DAILY 07/23/24 07/23/24 History [Vitamin D3 (50 Mcg = 2000 Iu)] Losartan [Cozaar] 50 mg PO DAILY 07/23/24 07/23/24 History Zinc 15mg 1 tab PO DAILY 07/23/24 07/23/24 History hydroCHLOROthiazide [Hydrodiuril] 25 mg PO DIRECTED 07/23/24 07/23/24 History Allergies Allergy/AdvReac Type Severity Reaction Status Date / Time amoxicillin Allergy Rash/Hives Verified 07/23/24 16:04 soap Allergy Rash/Hives Verified 07/23/24 16:04 Physical Exam Vitals: Vital Signs Temp Pulse Pulse Resp BP Pulse Ox 07/24/24 07:42 61 18 181/72 96 07/24/24 06:24 58 L 18 140/60 95 07/24/24 04:00 54 L 16 119/49 96 07/23/24 22:31 60 18 146/63 95 07/23/24 18:00 65 18 148/87 98 07/23/24 16:55 52 L 07/23/24 15:36 71 18 174/65 98 07/23/24 13:33 98.1 F 46 L 20 192/66 96 Results 07/23/24 13:59 07/23/24 13:59 Cardiac Enzymes 07/23/24 07/23/24 Range/Units 13:59 13:59 AST 28 (14-36) U/L Troponin I <0.012 (0.000-0.034) ng/mL Coagulation 07/23/24 Range/Units 13:59 PT 10.6 (10.0-12.5) sec APTT 23.0 (22.0-30.0) sec CBC 07/23/24 Range/Units 13:59 WBC 6.5 (3.8-10.6) k/uL RBC 4.11 (3.80-5.40) m/uL Hgb 12.9 (11.4-16.0) gm/dL Hct 37.5 (34.0-46.0) % Plt Count 263 (150-450) k/uL Comprehensive Metabolic Panel 07/23/24 Range/Units 13:59 Sodium 140 (137-145) mmol/L Potassium 4.0 (3.5-5.1) mmol/L Chloride 107 (98-107) mmol/L Carbon Dioxide 28 (22-30) mmol/L BUN 23 H (7-17) mg/dL Creatinine 1.15 H (0.52-1.04) mg/dL Glucose 132 H (74-99) mg/dL Calcium 9.3 (8.4-10.2) mg/dL AST 28 (14-36) U/L ALT 20 (4-34) U/L Alkaline Phosphatase 86 (38-126) U/L Total Protein 7.0 (6.3-8.2) g/dL Albumin 3.9 (3.5-5.0) g/dL Current Medications Generic Name Dose Route Start Last Admin Trade Name Freq PRN Reason Stop Dose Admin Acetaminophen 650 mg 07/23/24 15:59 Acetaminophen Tab 325 Mg Tab PO Q6HR PRN Mild Pain or Fever > 100.5 Hydrochlorothiazide 25 mg 07/24/24 09:00 Hydrochlorothiazide 25 Mg Tab PO DAILY HERNESTO Losartan Potassium 50 mg 07/24/24 09:00 07/24/24 08:14 Losartan 50 Mg Tab PO 50 mg DAILY HERNESTO Administration Naloxone HCl 0.2 mg 07/23/24 15:59 Naloxone 0.4 Mg/Ml 1 Ml Vial IV Q2M PRN Opioid Reversal Ondansetron HCl 4 mg 07/23/24 15:59 Ondansetron 4 Mg/2 Ml Vial IVP Q8HR PRN Nausea And Vomiting 07/23/24 13:59 07/23/24 13:59
[2024-07-24] MEDS: hydroCHLOROthiazide 25 MG TAB PO SCH (09:58)
[2024-07-24 10:02] LABS: Basophils % (A) 1 %; Eosinophils # (A) 0.3 k/uL (0-0.7); Eosinophils % (A) 6 %; HCT 35.9 % (34.0-46.0); HGB 12.1 gm/dL (11.4-16.0); Lymphocytes # (A) 1.6 k/uL (1.0-4.8); Lymphocytes % (A) 29 %; MCH 30.8 pg (25.0-35.0); MCHC 33.7 g/dL (31.0-37.0); MCV 91.4 fL (80.0-100.0); Mean Platelet Volume 6.3; Monocytes # (A) 0.6 k/uL (0-1.0); Monocytes % (A) 11 %; Neutrophils # (A) 2.7 k/uL (1.3-7.7); Neutrophils % (A) 50 %; Platelet Count 247 k/uL (150-450); RBC 3.93 m/uL (3.80-5.40); RDW 12.3 % (11.5-15.5); WBC 5.4 k/uL (3.8-10.6)
[2024-07-24 10:13] LABS: ALT 20 U/L (4-34); AST 27 U/L (14-36); African American GFR (CKD) 69 (>60 ml/min/1.73 sqM); Albumin 3.9 g/dL (3.5-5.0); Alkaline Phosphatase 77 U/L (38-126); Anion Gap 5 mmol/L; Blood Urea Nitrogen 23 mg/dL (7-17); Carbon Dioxide 27 mmol/L (22-30); Chloride 107 mmol/L (98-107); Glucose 96 mg/dL (74-99); Non-African American GFR(CKD) 60 (>60 ml/min/1.73 sqM); Potassium 4.3 mmol/L (3.5-5.1); Sodium 139 mmol/L (137-145); Total Bilirubin 0.4 mg/dL (0.2-1.3); Total Protein 6.9 g/dL (6.3-8.2)
[2024-07-24 10:23] LABS: INR 1.4 (<1.2); Prothrombin Time 14.2 sec (10.0-12.5)
--- NOTE | 2024-07-24 10:38 | P.PN ---
Antonio Ray presents to the hospital complaining of irregular heart rhythm. The patient reports that she has seen her PCP as she is complaining of weakness for the past few months. She reports that she has seen her PCP on July 05. She had an EKG that had appeared abnormal and she was referred to cardiology. She had seen cardiology on July 22. She had echocardiogram and EKG which she reports has shown no irregularities. She was then discharged home with a telemetry monitor. She was called to go to the ER as she had a irregular heart r hythm. When she presented to the hospital her initial heart was noted be 46. She was noted be hypertensive. EKG had revealed second-degree type II AV block. Case was discussed with cardiology who recommended getting admitted and holding metoprolol and starting lisinopril. Of note the patient does take losartan at home. The patient reports that she has not had any loss of consciousness or syncopal episodes. She reports that she is on aspirin 81 mg however if this has been held for the past week autonomously. In the ER her D-dimer was noted be elevated at 1.39. Chest x-ray revealed no acute process. She had a CTA chest which revealed no acute process. Review of Systems Constitutional: Reports as per HPI Past Medical History Past Medical History: Coronary Artery Disease (CAD), Chest Pain / Angina, H ypertension History of Any Multi-Drug Resistant Organisms: None Reported Past Surgical History: Joint Replacement Additional Past Surgical History / Comment(s): cataracts Past Psychological History: Depression Smoking Status: Current some day smoker, Never smoker Past Alcohol Use History: None Reported Past Drug Use History: None Reported Medications and Allergies Home Medications Medication Instructions Recorded Confirmed Type Metoprolol Succinate [Toprol XL] 50 mg PO DAILY 07/07/21 07/23/24 History Ascorbic Acid [Vitamin C] 1,000 mg PO DAILY 07/23/24 07/23/24 History Cholecalciferol (Vitamin D3) 50 mcg PO DAILY 07/23/24 07/23/24 History [Vitamin D3 (50 Mcg = 2000 Iu)] Losartan [Cozaar] 50 mg PO DAILY 07/23/24 07/23/24 History Zinc 15mg 1 tab PO DAILY 07/23/24 07/23/24 History hydroCHLOROthiazide [Hydrodiuril] 25 mg PO DIRECTED 07/23/24 07/23/24 History Allergies Allergy/AdvReac Type Severity Reaction Status Date / Time amoxicillin Allergy Rash/Hives Verified 07/23/24 16:04 soap Allergy Rash/Hives Verified 07/23/24 16:04 Physical Exam Vitals: General: non toxic, no distress, appears older than stated age Derm: warm, dry Head: atraumatic, normocephalic, symmetric Eyes: EOMI, no lid lag, anicteric sclera, pupils equal round reactive to light ENT: Nose and ears atraumatic, no thrush, no pharyngeal erythema Neck: No thyromegaly, no cervical lymphadenopathy, trachea midline, supple Mouth: no lip lesion, mucus membranes moist Cardiovascular: S1S2 reg, no murmur bradycardic rate Lungs: clear to ascultation bilateral, no ronchi, no rales, no wheeze, no accessory muscle use Abdominal: soft, nontender to palpation, no guarding, no appreciable organom egaly, normal bowel sounds Ext: no gross muscle atrophy, muscle strength muscle strength 5 out of 5 in all 4 extremities, no contractures Neuro: Moving all extremity spontaneously Psych: Alert, oriented, appropriate affect Objective - Vital Signs Vital signs: Vital Signs Temp 98.1 F 07/23/24 13:33 Pulse 58 L 07/24/24 09:51 Resp 16 07/24/24 09:51 BP 137/66 07/24/24 09:51 Pulse Ox 95 07/24/24 09:51 FiO2 Intake & Output 07/23/24 07/24/24 07/24/24 18:59 06:59 18:59 Weight 125.191 kg - Labs CBC & Chem 7: 07/24/24 09:51 07/24/24 09:51 Labs: Abnormal Lab Results - Last 24 Hours (Table) 07/23/24 07/23/24 07/24/24 Range/Units 13:59 13:59 09:51 PT 14.2 H (10.0-12.5) sec INR 1.4 H (<1.2) D-Dimer 1.39 H (<0.60) mg/L FEU BUN 23 H (7-17) mg/dL Creatinine 1.15 H (0.52-1.04) mg/dL Glucose 132 H (74-99) mg/dL 07/24/24 Range/Units 09:51 PT (10.0-12.5) sec INR (<1.2) D-Dimer (<0.60) mg/L FEU BUN 23 H (7-17) mg/dL Creatinine (0.52-1.04) mg/dL Glucose (74-99) mg/dL Assessment and Plan Assessment: Assessment and Plan Assessment: #)2nd degree, mobitz II AV block. Continue telemetry monitoring. NPO midnight. hold home metoprolol. bedrest with bathroom privledges. NPO for PPM with cardiology tomorrow. hold dvt ppx #) Primary htn. Noted to be on losartan 50 mg daily at home and had taken her losartan this am. rxed hctz by cardiology on 07/22. Continue home losartan 50 mg daily, monitor BP after PPM placement 07/24 Patient seen and examined at bedside Family is at bedside as well Further discussion with cardiology, no plans for pacemaker yet Will continue to monitor heart rate Did review potline monitor, currently normal sinus rhythm heart rates in the 60s She did state that she did have some palpitations, sense of uneasiness when she was walking to the bathroom earlier this morning Will defer to cardiology if PPM is required or not Continue to monitor otherwise Hold AV britta blocking agents Dispo: cardiac stepdown. Anticipated discharge date 48-72 hours Dvt ppx: SCDS
--- NOTE | 2024-07-25 13:18 | P.PN ---
Subjective Progress Note Date: 07/25/24 Hospital Course: 78-year-old female with past medical history of hypertension, was found to have second-degree heart block with 2-1 conduction, admitted to cardiac monitoring. For telemetry, cardiology consultation was requested, no pacemaker implantation is required at this time, patient's metoprolol was discontinued, 07/25 patient was ambulated and again found to have second-degree AV block, per cardiology, patient will stay overnight for further monitoring, she was continued on losartan and hydrochlorothiazide for blood pressure control Subjective: Was seen and examined at bedside, patient's son present during encounter. Patient was complaining only of some shortness of breath with exertion, denied chest pain or pressure, abdominal pain, nausea, vomiting, lightheadedness Pertinent positives and negatives as discussed above, a complete review of systems was performed and all other systems are negative. Vitals Signs Reviewed. General: [nontoxic], [no distress], [appears at stated age], obese Derm: [warm], [dry] Head: [atraumatic], [normocephalic], [symmetric] Eyes: [EOMI], [no lid lag], [anicteric sclera] Mouth: [no lip lesion], [mucus membranes moist] Cardiovascular: [S1S2 reg], [no murmur] Lungs: [CTA bilateral], [no rhonchi, no rales] , [no accessory muscle use] Abdominal: [soft], [ nontender to palpation], [no guarding], [no appreciable organomegaly] Ext: [no gross muscle atrophy], bilateral lower extremity swelling], [no contractures] Neuro: [ CN II-XI grossly intact], [no focal neuro deficits] Psych: [Alert], [oriented], [appropriate affect] Data Reviewed Today: Pertinent Labs: Lab work from 07/24 reviewed, stable CBC, CMP with normal electrolytes and kidney function Imaging: Review of telemetry Assessment and Plan: Intermittent second-degree AV block Hypertension Exertional SOB -Continue telemetry -Cardiology on board, no pacemaker required at this time, monitor overnight -Continue to hold metoprolol, continue losartan and hydrochlorothiazide -TSH normal DVT ppx: SCD Code status: full Code Anticipated discharge place: Home Anticipated discharge time: 24 hours Objective - Vital Signs Vital signs: Vital Signs Temp 98.1 F 07/25/24 12:00 Pulse 49 L 07/25/24 12:00 Resp 17 07/25/24 12:00 BP 159/69 07/25/24 12:00 Pulse Ox 95 07/25/24 12:00 FiO2 Intake & Output 07/24/24 07/25/24 07/25/24 18:59 06:59 18:59 Intake Total 540 Balance 540 Weight 125.191 kg 122.7 kg Intake: Oral 540 Other: Voiding Method Toilet Toilet # Voids 1 2 - Labs CBC & Chem 7: 07/24/24 09:51 07/24/24 09:51
--- NOTE | 2024-07-25 18:50 | P.PN ---
Subjective Patient is doing well. Initially in the morning rhythm seems to have recovered with one-to-one conduction and I had her walk up and down the hallway. Her shortness of breath improved significantly. However later we saw that she continued to have AV node Wenckebach block Her last dose of Toprol-XL was on Thursday and therefore it is barely been 48 hours since we stopped it Hence we have opted to keep her in the hospital and continue to monitor On examination heart sounds are normal breath sounds are clear She is now on losartan for hypertension Assessment Paroxysmal AV block Normal potassium Patient on metoprolol succinate 50 mg p.o. daily for hypertension management She wore an event monitor which showed paroxysmal AV block and was sent to the hospital Here metoprolol has been discontinued completely and there has been recovery of AV node function QRS is narrow Blood pressure is well-controlled on losartan Plan And a detailed discussion with the patient and her son. He stated that she intermittently gets short of breath when she walks in the grocery store. Now that we note that she has one-to-one conduction I would encourage her to walk the hallways here for this morning several times to establish a new baseline in terms of her ability to walk and exercise in her baseline degree of shortness of breath with exertion. Permanent pacemaker only if she has paroxysmal AV block despite discontinuation of beta-blockers Symptoms of gradual onset bradycardia were explained to the patient Objective - Vital Signs Vital signs: Vital Signs Temp 97.5 F L 07/25/24 04:00 Pulse 56 L 07/25/24 04:00 Resp 16 07/25/24 04:00 BP 134/73 07/25/24 04:00 Pulse Ox 95 07/25/24 04:00 FiO2 Intake & Output 07/24/24 07/25/24 07/25/24 18:59 06:59 18:59 Intake Total 540 Balance 540 Weight 125.191 kg 122.7 kg Intake: Oral 540 Other: Voiding Method Toilet # Voids 1 2 - Labs CBC & Chem 7: 07/24/24 09:51 07/24/24 09:51 Labs: Abnormal Lab Results - Last 24 Hours (Table) 07/24/24 07/24/24 Range/Units 09:51 09:51 PT 14.2 H (10.0-12.5) sec INR 1.4 H (<1.2) BUN 23 H (7-17) mg/dL
[2024-07-26 09:27] LABS: African American GFR (CKD) 55 (>60 ml/min/1.73 sqM); Anion Gap 7 mmol/L; Blood Urea Nitrogen 26 mg/dL (7-17); Calcium 9.2 mg/dL (8.4-10.2); Carbon Dioxide 30 mmol/L (22-30); Chloride 103 mmol/L (98-107); Glucose 101 mg/dL (74-99); Non-African American GFR(CKD) 47 (>60 ml/min/1.73 sqM); Potassium 4.1 mmol/L (3.5-5.1); Sodium 140 mmol/L (137-145)
[2024-07-26 09:38] LABS: Prothrombin Time 10.7 sec (10.0-12.5)
[2024-07-26] MEDS: SODIUM CHLORIDE 0.9% 1,000 ML IV SCH ×2 (10:06→10:19)
--- NOTE | 2024-07-26 11:25 | P.PN ---
Subjective HISTORY OF PRESENT ILLNESS: This is a 78-year-old female with a past medical history significant for hypertension. Patient follows in the office with Dr. Dietz. We have been asked to see the patient in consultation for heart block. Patient examined at the bedside. Patient recently established care with Dr. Dietz on 07/22/2024. Patient was found to be in sinus mechanism with 2-1 conduction. Patient was previously taking 100 mg of metoprolol succinate. It was decreased to 50 mg daily. She was also given an event monitor. Patient received a phone call from cardiology instructing her to come to the emergency room. Patient's event mon itor revealed episodes of second-degree heart block with 2-1 conduction. EKG on admission reveals the same. However at the time of examination she is maintaining sinus mechanism. She reports recently she has been feeling short of breath and having palpitations with ambulation. She also reports that her blood pressure has been elevated on an outpatient basis. Per nursing, patient's heart rate was in the 30s overnight. DIAGNOSTICS: - EKG reveals second-degree heart block with 2-1 conduction - Chest xray negative for acute process - Laboratory data: WBC 6.5. Hemoglobin 12.9. Platelet count 263. D-dimer 1.39. Sodium 140. Potassium 4.0. BUN 23. Creatinine 1.15. Troponin negative x 1. proBNP 647. - Current home cardiac medications include metoprolol succinate 50 mg daily, losartan 50 mg daily, hydrochlorothiazide 25 mg daily. - Patient did have an echocardiogram performed in the office on 07/22/2024. However results are unavailable at this time. 07/26/2024 Patient examined this morning. She is sitting up in the chair. Patient denies chest pain or pressure. She denies shortness of breath. Vital signs are stable. Telemetry reviewed with continued occasional episodes of second-degree heart block. Patient had an echocardiogram performed in the office on 07/22/2024 revealing ejection fraction 55 to 60%, mild MR, mild TR. PHYSICAL EXAM: VITAL SIGNS: Reviewed. GENERAL: Well-developed in no acute distress. HEENT: Head is normocephalic. Pupils are equal, round. Sclerae anicteric. Mucous membranes of the mouth are moist. Neck supple. No JVD or thyromegaly LUNGS: Respirations even and unlabored. Lungs essentially clear to auscultation bilaterally. HEART: Regular rate and rhythm. S1 and S2 heard. ABDOMEN: Soft. Nondistended. Nontender. EXTREMITIES: Normal range of motion. No clubbing or cyanosis. Peripheral pulses intact. No lower extremity edema NEUROLOGIC: Awake and alert. Oriented x 3. ASSESSMENT: Intermittent second-degree heart block with 2-1 conduction Exertional shortness of breath Hypertension Morbid obesity: BMI 43.2 PLAN: Metoprolol discontinued upon admission Continue additional cardiac medications Continue telemetry monitoring Patient to undergo permanent pacemaker implantation today with Dr. Diaz Further recommendations pending patient course Nurse practitioner note has been reviewed by physician. Signing provider agrees with the documented findings, assessment, and plan of care documented by VALIDATION LEADER as a scribe. Objective - Vital Signs Vital signs: Vital Signs Temp 97.9 F 07/26/24 11:09 Pulse 74 07/26/24 11:09 Resp 17 07/26/24 11:09 BP 147/62 07/26/24 11:09 Pulse Ox 96 07/26/24 11:09 FiO2 Intake & Output 07/25/24 07/26/24 07/26/24 18:59 06:59 18:59 Intake Total 236 660 138 Balance 236 660 138 Weight 122.6 kg Intake: IV 20 Invasive Line 1 10 Invasive Line 2 10 Oral 236 660 118 Other: Voiding Method Toilet Toilet Toilet # Voids 2 1 - Labs CBC & Chem 7: 07/24/24 09:51 07/26/24 08:52 Labs: Abnormal Lab Results - Last 24 Hours (Table) 07/26/24 Range/Units 08:52 BUN 26 H (7-17) mg/dL Creatinine 1.12 H (0.52-1.04) mg/dL Glucose 101 H (74-99) mg/dL
--- NOTE | 2024-07-26 12:58 | P.PN ---
Subjective Progress Note Date: 07/26/24 Hospital Course: 78-year-old female with past medical history of hypertension, was found to have second-degree heart block with 2-1 conduction, admitted to cardiac monitoring. For telemetry, cardiology consultation was requested, no pacemaker implantation is required at this time, patient's metoprolol was discontinued, 07/25 patient was ambulated and again found to have second-degree AV block, per cardiology, patient will stay overnight for further monitoring, she was continued on losartan and hydrochlorothiazide for blood pressure control Subjective: Was seen and examined at bedside, patient's son present during encounter. Patient was complaining only of some shortness of breath with exertion, denied chest pain or pressure, abdominal pain, nausea, vomiting, lightheadedness Pertinent positives and negatives as discussed above, a complete review of systems was performed and all other systems are negative. Vitals Signs Reviewed. General: [nontoxic], [no distress], [appears at stated age], obese Derm: [warm], [dry] Head: [atraumatic], [normocephalic], [symmetric] Eyes: [EOMI], [no lid lag], [anicteric sclera] Mouth: [no lip lesion], [mucus membranes moist] Cardiovascular: [S1S2 reg], [no murmur] Lungs: [CTA bilateral], [no rhonchi, no rales] , [no accessory muscle use] Abdominal: [soft], [ nontender to palpation], [no guarding], [no appreciable organomegaly] Ext: [no gross muscle atrophy], bilateral lower extremity swelling], [no contractures] Neuro: [ CN II-XI grossly intact], [no focal neuro deficits] Psych: [Alert], [oriented], [appropriate affect] Assessment and Plan: Intermittent second-degree AV block Exertional SOB -I reviewed note from cardiology and plan is for pacemaker insertion today. -Metoprolol was discontinued on admission -Telemetry- Hypertension Continue with hydrochlorothiazide 25 mg p.o. daily, losartan 50 mg p.o. daily DVT ppx: SCD Code status: full Code Anticipated discharge place: Home Anticipated discharge time: 24 hours Labs unremarkable so do not need to trend Objective - Vital Signs Vital signs: Vital Signs Temp 97.9 F 07/26/24 11:09 Pulse 74 07/26/24 11:09 Resp 17 07/26/24 11:09 BP 147/62 07/26/24 11:09 Pulse Ox 96 07/26/24 11:09 FiO2 Intake & Output 07/25/24 07/26/24 07/26/24 18:59 06:59 18:59 Intake Total 236 660 148 Balance 236 660 148 Weight 122.6 kg Intake: IV 30 Invasive Line 1 10 Invasive Line 2 10 Invasive Line 3 10 Oral 236 660 118 Other: Voiding Method Toilet Toilet Toilet # Voids 2 1 - Labs CBC & Chem 7: 07/24/24 09:51 07/26/24 08:52 Labs: Abnormal Lab Results - Last 24 Hours (Table) 07/26/24 Range/Units 08:52 BUN 26 H (7-17) mg/dL Creatinine 1.12 H (0.52-1.04) mg/dL Glucose 101 H (74-99) mg/dL
[2024-07-26 15:31] VITALS: RESP 16
[2024-07-26] MEDS: SODIUM CHLORIDE 0.9% 800 ML IV ONE (15:46)
[2024-07-26] MEDS ORDERED: MIDAZOLAM 2 MG/2 ML VIAL ONE (17:47)
[2024-07-26] MEDS ORDERED: fentaNYL (PF) 50 MCG/ML 2 ML AMP ONE (17:47)
[2024-07-26] MEDS ORDERED: ACETAMINOPHEN TAB 325 MG TAB PO PRN (18:09)
[2024-07-26] MEDS: IOPAMIDOL-370 100ML BTL INJ ONE (18:15)
[2024-07-26] MEDS: ceFAZolin 3 GM in SODIUM CHLORIDE 0.9% 100 ML IVPB PRN (18:18)
[2024-07-26] MEDS: ROPIVACAINE 5 MG/ML 30 ML VIAL MISCELLANE ONE (18:22)
[2024-07-26] MEDS: LIDOCAINE 1% INJ 10MG/ML (20 ML MDV) SQ ONE ×2 (18:22→18:39)
[2024-07-26] MEDS: HEPARIN SODIUM,PORCINE (1 ML) 2,500 UNIT in SODIUM CHLORIDE 0.9% 250 ML IRRIGATION ONE (18:32)
[2024-07-26] MEDS: ceFAZolin 1 GM in SODIUM CHLORIDE 0.9% IRRIG BTL 250 ML IRRIGATION PRN (18:34)
--- NOTE | 2024-07-26 19:59 | P.EPPROC ---
- EP Procedure Note Electrophysiology Procedure Note: Diagnosis Symptomatic bradycardia, unprovoked, no triggering factors Paroxysmal AV block that has persisted even after discontinuation of beta- blockers, symptomatic Procedure Dual-chamber pacemaker implantation with conduction system pacing (left bundle pacing) Left upper extremity venogram Extended procedure duration Details Patient was brought to the EP lab in a fasting state. Written informed consent was obtained prior to the procedure. Conscious sedation provided by PATIENT SUPPORT ASSISTANT. IV antibiotics administered. Local anesthesia administered. A 4 cm incision made in the pectoral area. Subfascial pocket made. Venous accesses obtained Venous sheaths placed. Leads placed in the right heart. 2 sets of pacing cables were used; one for backup temporary pacing and the other for assessment of current of injury and signal analysis. A 52 cm atrial pacing lead was first positioned in the RV apex for temporary pacing during mapping and conduction system pacing Thresholds were interrogated and backup high output pacing was provided This atrial lead was then removed from the right ventricle and later positioned in the right atrial appendage and the permanent lead A deflected sheath was prepped. A coronary sinus decapolar catheter was placed within this sheath. The catheter along with the sheath was then passed into the right heart, the catheter was prolapsed across the tricuspid valve, into the right ventricle and then further into the right ventricular outflow tract across the pulmonic valve into the pulmonary artery. This sheath was slid over this decapolar catheter into the RVOT. Thereafter the catheter last sheath assembly was withdrawn from the RVOT along the septum to the mid septal area. The sheath was appropriately to to map the right ventricular aspect of the septum. The decapolar catheter was withdrawn, the sheath flushed again and the screw-in pa cing lead placed within the sheath. Further detailed unipolar pace-mapping of the septum was performed and once the appropriate based morphology was obtained on lead V1, the lead was screwed into the septum. The lead was screwed in 4-5 returns at a time while monitoring the current of injury, the pacing impedance changes and the paced QRS morphology. The stimulus to peak of V6 QRS was measured at each step. Once a QR or rSR pattern of paced QRS in lead V1 was obtained, a left bundle signal was sought. Impedance was measured and thresholds were measured. An impedance drop of 100-200 ohms but above 550 ohms was targeted along with an unchanged vector of the current of injury signal. The final positioning was based on the QRS morphology in lead V1 and a short stimulus to peak of the V6 QRS of less than 90 ms. The sheath was withdrawn, stability of the pacing lead deep in the septum was confirmed on LOPEZ and MACEDONIAN views and the sheath was slipped and an adequate heel was provided for the lead. Unipolar and bipolar electrogram morphology obtained Atrial lead positioned in the right atrial appendage. Sensing, thresholds and impedances measured following positioning and securing the lead in the right atrial appendage Medtronic model #5076, 52 cm in length P waves 3.8 mV, pacing impedance 513 ohms and pacing threshold 1 V at 0.4 ms. Left bundle lead parameters R waves 7.1 mV, pacing pins 551 ohms and pacing threshold 0.25 V at 0.4 ms Stimulus-V6 of about 90 ms, paced QRS 140 ms, QR pattern Device line construction supervisor: Medtronic Terra XT DR MRI Dual-chamber pacemaker device connected to the leads and placed in the subfascial pocket. Antibiotic pouch placed Patient tolerated the procedure well without acute complications Pacemaker programming: DDD paced AV delay 180 ms Patient tolerated the procedure well without any acute complication Extended procedure duration This is a long procedure on account of patient body habitus, very deep pocket, increased BMI of 42.3 In addition several sites had to be investigated and interrogated before final successful placement of the lead for left bundle pacing Total procedure duration 2 hours
[2024-07-26] MEDS: ACETAMINOPHEN IV (For NPO) 1,000 MG in EMPTY BAG 1 BAG IVPB ONE (21:19)
[2024-07-27 03:52] VITALS: TEMP 97.8
[2024-07-27] MEDS ORDERED: ceFAZolin 3 GM in SODIUM CHLORIDE 0.9% 100 ML IVPB PRN (07:00)
[2024-07-27] MEDS ORDERED: ceFAZolin 1 GM in SODIUM CHLORIDE 0.9% IRRIG BTL 250 ML IRRIGATION PRN (07:00)
--- NOTE | 2024-07-27 10:52 | XR ---
EXAMINATION TYPE: XR chest 2V DATE OF EXAM: 07/27/2024 6:31 AM COMPARISON: 07/23/2024 CLINICAL INDICATION: Female, 78 years old with history of Lead placement check, TECHNIQUE: XR chest 2V view(s) obtained. FINDINGS: The heart size is normal. The pulmonary vasculature is normal. The lungs are clear. Pacemaker is placed on the left. 2 leads are present typical orientation. No pn eumothorax is evident. IMPRESSION: 1. No acute pulmonary process. 2. No pneumothorax post left-sided pacemaker placement [facility] Amirah Marte, , 07/27/2024 10:49 AM
--- NOTE | 2024-07-27 11:30 | P.PN ---
Subjective HISTORY OF PRESENT ILLNESS: This is a 78-year-old female with a past medical history significant for hypertension. Patient follows in the office with Dr. Dietz. We have been asked to see the patient in consultation for heart block. Patient examined at the bedside. Patient recently established care with Dr. Dietz on 07/22/2024. Patient was found to be in sinus mechanism with 2-1 conduction. Patient was previously taking 100 mg of metoprolol succinate. It was decreased to 50 mg daily. She was also given an event monitor. Patient received a phone call from cardiology instructing her to come to the emergency room. Patient's event mon itor revealed episodes of second-degree heart block with 2-1 conduction. EKG on admission reveals the same. However at the time of examination she is maintaining sinus mechanism. She reports recently she has been feeling short of breath and having palpitations with ambulation. She also reports that her blood pressure has been elevated on an outpatient basis. Per nursing, patient's heart rate was in the 30s overnight. DIAGNOSTICS: - EKG reveals second-degree heart block with 2-1 conduction - Chest xray negative for acute process - Laboratory data: WBC 6.5. Hemoglobin 12.9. Platelet count 263. D-dimer 1.39. Sodium 140. Potassium 4.0. BUN 23. Creatinine 1.15. Troponin negative x 1. proBNP 647. - Current home cardiac medications include metoprolol succinate 50 mg daily, losartan 50 mg daily, hydrochlorothiazide 25 mg daily. - Patient did have an echocardiogram performed in the office on 07/22/2024. However results are unavailable at this time. 07/26/2024 Patient examined this morning. She is sitting up in the chair. Patient denies chest pain or pressure. She denies shortness of breath. Vital signs are stable. Telemetry reviewed with continued occasional episodes of second-degree heart block. Patient had an echocardiogram performed in the office on 07/22/2024 revealing ejection fraction 55 to 60%, mild MR, mild TR. 07/27/2024 Patient is status post dual-chamber pacemaker implantation. Patient examined this morning. She is sitting in the chair. Patient denies chest pain or pressure. She denies shortness of breath. Pacemaker was interrogated and is functioning appropriately. Chest x-ray completed with appropriate lead position. PHYSICAL EXAM: VITAL SIGNS: Reviewed. GENERAL: Well-developed in no acute distress. HEENT: Head is normocephalic. Pupils are equal, round. Sclerae anicteric. Mucous membranes of the mouth are moist. Neck supple. No JVD or thyromegaly LUNGS: Respirations even and unlabored. Lungs essentially clear to auscultation bilaterally. HEART: Regular rate and rhythm. S1 and S2 heard. ABDOMEN: Soft. Nondistended. Nontender. EXTREMITIES: Normal range of motion. No clubbing or cyanosis. Peripheral pulses intact. No lower extremity edema NEUROLOGIC: Awake and alert. Oriented x 3. ASSESSMENT: Intermittent second-degree heart block with 2-1 conduction status post dual- chamber pacemaker implantation Exertional shortness of breath Hypertension Morbid obesity: BMI 43.2 PLAN: Continue current cardiac medications Patient requesting prescriptions for hydrochlorothiazide and losartan as she states she does not have these medications at home Patient is stable for discharge home today from a cardiac standpoint Patient may follow-up postdischarge with Dr. Dietz Nurse practitioner note has been reviewed by physician. Signing provider agrees with the documented findings, assessment, and plan of care documented by FINANCIAL REPORTING CONSULTANT as a scribe. Objective - Vital Signs Vital signs: Vital Signs Temp 97.8 F 07/27/24 03:47 Pulse 89 07/27/24 08:30 Resp 16 07/27/24 08:30 BP 164/79 07/27/24 08:30 Pulse Ox 96 07/27/24 08:30 FiO2 Intake & Output 07/26/24 07/27/24 07/27/24 18:59 06:59 18:59 Intake Total 788 40 260 Balance 788 40 260 Weight 116.5 kg Intake: IV 670 40 20 Invasive Line 1 10 Invasive Line 2 20 20 10 Invasive Line 3 20 20 10 Oral 118 240 Other: Voiding Method Toilet Toilet Toilet # Voids 3 1 - Labs CBC & Chem 7: 07/24/24 09:51 07/26/24 08:52
--- NOTE | 2024-07-27 11:52 | P.DS ---
Providers Date of admission: 07/23/24 15:43 Attending physician: Benjamin Sorto MD Consults: 07/23/24 15:59 Consult Physician Urgent Consulting Provider: Patrice Diaz Consult Reason/Comments: 2nd AV block Do you want consulting provider notified?: Yes, Notify in am Primary care physician: Lety [place] Hospital Course: Discharge Diagnosis: Secondary AV block Hypertension Hospital Course: 78-year-old female with past medical history of hypertension, was found to have second-degree heart block with 2-1 conduction, admitted to cardiac monitoring. Patient was seen by cardiology who recommended no intervention initially. Patient was monitored overnight. She continued to have episodes of second- degree heart block. Cardiology then recommended pacemaker insertion. Patient had pacemaker insertion on 07/26/2024. Patient was monitored overnight. Patient was then deemed stable for discharge. Her metoprolol was discontinued by cardiology. Patient will resume her blood pressure meds which include losartan and hydrochlorothiazide which were refilled. Patient seen and examined at bedside.[] Vital signs reviewed and stable. General examination - Alert and Oriented 3 in NAD Heart - + S1S2 no murmurs Lungs - Clear to auscultation Abdomen soft NT ND +ve BS Extremities - No edema VISUAL SUPERVISOR - Moving all 4 extremities spontaneously Psych - Calm and cooperative A total of [33] minutes of time were spent preparing this complex discharge summary . Patient discharged on [07/27/2024] Patient Condition at Discharge: Stable Plan - Discharge Summary Discharge Rx Participant: No New Discharge Prescriptions: New Losartan [Cozaar] 50 mg PO DAILY #90 tab hydroCHLOROthiazide [Hydrodiuril] 25 mg PO DAILY #90 tab Continue Cholecalciferol (Vitamin D3) [Vitamin D3 (50 Mcg = 2000 Iu)] 50 mcg PO DAILY Zinc 15mg 1 tab PO DAILY hydroCHLOROthiazide [Hydrodiuril] 25 mg PO DIRECTED #90 tab Ascorbic Acid [Vitamin C] 1,000 mg PO DAILY Losartan [Cozaar] 50 mg PO DAILY #90 tab Discontinued Metoprolol Succinate [Toprol XL] 50 mg PO DAILY Discharge Medication List Ascorbic Acid [Vitamin C] 1,000 mg PO DAILY 07/23/24 [History] Cholecalciferol (Vitamin D3) [Vitamin D3 (50 Mcg = 2000 Iu)] 50 mcg PO DAILY 07/23/24 [History] Zinc 15mg 1 tab PO DAILY 07/23/24 [History] Losartan [Cozaar] 50 mg PO DAILY #90 tab 07/27/24 [Rx] Losartan [Cozaar] 50 mg PO DAILY #90 tab 07/27/24 [Rx] hydroCHLOROthiazide [Hydrodiuril] 25 mg PO DIRECTED #90 tab 07/27/24 [Rx] hydroCHLOROthiazide [Hydrodiuril] 25 mg PO DAILY #90 tab 07/27/24 [Rx] Follow up Appointment(s)/Referral(s): Ilsa Dietz MD [STAFF PHYSICIAN] - 1 Week Lety Kwan MD [Primary Care Provider] - 1-2 days Discharge Disposition: HOME SELF-CARE
[2024-07-27 12:06] VITALS: BP 145/91; PULSE 94
== END 2024-07-27 13:03 | disposition home or self-care (01) | DRG 243 ==
LOC: EC 13:32 → 3SCARD 15:43
PROVIDERS: ADMIT Internal Medicine; ATTEND Internal Medicine
PROC: 02H63JZ Insertion of Pacemaker Lead into Right Atrium, Percutaneous Approach (ICD-10-PCS; 2024-07-26)
PROC: 02HK3JZ Insertion of Pacemaker Lead into Right Ventricle, Percutaneous Approach (ICD-10-PCS; 2024-07-26)
PROC: 0JH606Z Insertion of Pacemaker, Dual Chamber into Chest Subcutaneous Tissue and Fascia, Open Approach (ICD-10-PCS; principal; 2024-07-26 10:00)
DX: I44.1 Atrioventricular block, second degree (principal); Z68.41 Body mass index [BMI] 40.0-44.9, adult; E66.01 Morbid (severe) obesity due to excess calories; I10 Essential (primary) hypertension; F17.210 Nicotine dependence, cigarettes, uncomplicated; I25.10 Atherosclerotic heart disease of native coronary artery without angina pectoris; Z79.899 Other long term (current) drug therapy
CPT/HCPCS: 33208; 36415; 71046; 71275; 80048; 80053; 83735; 83880; 84443; 84484; 85025; 85379; 85610; 85730; 86850; 86900; 86901; 93005; 99285

== ENCOUNTER → 2025-02-02 | Outpatient (CLI) | payer MEDICARE ==
[2025-02-02 15:14] LABS: Basophils # (A) 0.05 X 10*3/uL (0.00-0.10); Basophils % (A) 0.7 %; Eosinophils % (A) 4.2 %; HCT 35.8 % (37.2-46.3); HGB 11.7 g/dL (12.0-15.0); Lymphocytes # (A) 2.57 X 10*3/uL (0.90-5.00); Lymphocytes % (A) 35.6 %; MCH 30.1 pg (27.0-32.0); MCHC 32.7 g/dL (32.0-37.0); Mean Platelet Volume 9.2 FL (9.5-12.2); Monocytes # (A) 0.81 X 10*3/uL (0.20-1.00); Monocytes % (A) 11.2 %; NRBC Per 100 WBC 0 X 10*3/uL (0.00-0.01); Neutrophils # (A) 3.47 X 10*3/uL (1.80-7.70); Platelet Count 314 X 10*3/uL (140-440); RBC 3.89 X 10*6/uL (4.10-5.20); RDW 11.9 % (11.5-14.5); WBC 7.22 X 10*3/uL (4.50-10.00)
[2025-02-02 15:46] LABS: Blood Urea Nitrogen 38.7 mg/dL (9.0-27.0); Carbon Dioxide 23.9 mmol/L (21.6-31.8); Chloride 104 mmol/L (96-109); Chol/HDL Ratio 3.97 Ratio; Glucose 114 mg/dL (70-110); LDL Cholesterol,Calculated 101.7 mg/dL (0.0-131.0); Potassium 3.9 mmol/L (3.5-5.5); Sodium 141 mmol/L (135-145)
[2025-02-02 15:47] LABS: ALT 20 U/L (8-44); AST 29 U/L (13-35); Albumin 4.1 g/dL (3.8-4.9); Albumin/Globulin Ratio 1.24 Ratio (1.60-3.17); Alkaline Phosphatase 84 U/L (41-126); Calcium 9.5 mg/dL (8.7-10.3); Globulin 3.3 g/dL (1.6-3.3); Total Bilirubin 0.3 mg/dL (0.3-1.2); Total Protein 7.4 g/dL (6.2-8.2)
== END | disposition home or self-care (01) ==
LOC: LABWHC1 08:08
PROVIDERS: ATTEND Family Medicine
DX: I12.9 Hypertensive chronic kidney disease with stage 1 through stage 4 chronic kidney disease, or unspecified chronic kidney disease (principal); N18.30 Chronic kidney disease, stage 3 unspecified; Z79.899 Other long term (current) drug therapy
CPT/HCPCS: 36415; 80053; 80061; 83036; 84439; 84443; 85025

== ENCOUNTER → 2025-03-09 | Outpatient (CLI) | payer MEDICARE ==
[2025-03-09 15:45] LABS: ALT 21 U/L (8-44); AST 24 U/L (13-35); Albumin 3.9 g/dL (3.8-4.9); Albumin/Globulin Ratio 1.56 Ratio (1.60-3.17); Alkaline Phosphatase 69 U/L (41-126); Anion Gap 11.80 mmol/L (4.00-12.00); BUN/Creat Ratio 18.00 Ratio (12.00-20.00); Blood Urea Nitrogen 21.6 mg/dL (9.0-27.0); Calcium 9.4 mg/dL (8.7-10.3); Carbon Dioxide 26.2 mmol/L (21.6-31.8); Chloride 103 mmol/L (96-109); Globulin 2.5 g/dL (1.6-3.3); Glucose 107 mg/dL (70-110); Potassium 5.0 mmol/L (3.5-5.5); Sodium 141 mmol/L (135-145); Total Protein 6.4 g/dL (6.2-8.2)
== END | disposition home or self-care (01) ==
LOC: LABWHC1 09:43
PROVIDERS: ATTEND Family Medicine
DX: R94.4 Abnormal results of kidney function studies (principal)
CPT/HCPCS: 36415; 80053